=== PATIENT | male | born 1975 | race Caucasian/White ===

== ENCOUNTER → 2020-12-06 09:44 | Outpatient (CLI) | payer OTHER, SELFPAY ==
--- NOTE | 2020-12-06 09:45 | DI.RAD.S_ITS ---
PROCEDURE: XR LUMBAR SPINE 2-3V INDICATIONS: low back pain TECHNIQUE: 3 views of the lumbar spine were acquired. COMPARISON: None. FINDINGS: Bones: No fracture. Moderate to severe narrowing of the L5-S1 disc space. Multilevel degenerative endplate sclerosis and spurring. Diffuse facet arthropathy. Straightening of the normal lordotic curvature. Partially visualized bilateral mild hip joint degeneration. Soft tissues: Overlying bowel gas pattern is normal. No suspicious soft tissue calcifications. IMPRESSION: Moderate to severe L5-S1 spondylosis and diffuse facet arthropathy Dictated by: Darrin Chi M.D. on 12/06/2020 at 10:18 Approved by: Darrin Chi M.D. on 12/06/2020 at 10:22
== END ==
PROVIDERS: PCP Internal Medicine; Referring Provider Internal Medicine; Visit Provider Internal Medicine
DX: M54.5 Low back pain (principal); M47.817 Spondylosis without myelopathy or radiculopathy, lumbosacral region; M16.0 Bilateral primary osteoarthritis of hip
CPT/HCPCS: 72100

== ENCOUNTER → 2020-12-21 09:53 | Outpatient (CLI) | payer OTHER, SELFPAY ==
[2020-12-21 11:25] LABS: Alanine Aminotransferase 33 IU/L (<50); Albumin 4.6 g/dL (3.5-5.0); Albumin Globulin Ratio 1.6 (1.0-2.8); Alkaline Phosphatase 65 U/L (38-126); Aspartate Aminotransferase 32 IU/L (17-59); Bilirubin Total 0.4 mg/dL (0.2-1.3); Blood Urea Nitrogen 19 mg/dL (9-20); Calcium 9.6 mg/dL (8.4-10.2); Carbon Dioxide 28 mmol/L (22-32); Chloride 105 mmol/L (98-107); Cholesterol 209 mg/dL (140-199); Estimated Glomerular Filt Rate > 60.0 mL/min (>60); Globulin 2.9 g/dL (1.7-4.1); Glucose 104 mg/dL (70-100); HDL Cholesterol 42 mg/dL (40-60); HEMOLYSIS < 15 (0-50); LDL Cholesterol Calculated 130 mg/dL (<100); Potassium 4.3 mmol/L (3.4-5.1); Sodium 138 mmol/L (137-145); Total Protein 7.5 g/dL (6.3-8.2); Triglycerides 187 mg/dL (35-150)
[2020-12-26 19:47] LABS: Vitamin D 25 Hydroxy (D3) 49.2 ng/mL (30.0-100.0)
== END ==
PROVIDERS: PCP Internal Medicine; Referring Provider Internal Medicine; Visit Provider Internal Medicine
DX: Z13.1 Encounter for screening for diabetes mellitus (principal); Z13.220 Encounter for screening for lipoid disorders; Z13.6 Encounter for screening for cardiovascular disorders; M54.5 Low back pain
CPT/HCPCS: 36415; 80053; 80061; 82306

== ENCOUNTER → 2021-01-24 10:19 | Outpatient (CLI) | payer OTHER, SELFPAY ==
--- NOTE | 2021-01-24 10:27 | DIET.PN ---
Dietary Progress Note Assessment: 45y M attending nutrition visit for help c back pain and weight loss. Pt works for [employer] and goes to [employer] regularly however lives alone and when stressed out will order [employer] a few times per day and overeat. Pt reports hx of some disordered eating, waiting too long to eat then eating a day's worth of meals at one time. 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 HT: 6' WT: 230# Would like to lose 30# UBW: 220# (has gained weight during covid) BMI: 31.2 Labs: FBG 104 H, TG 187 H, TC 209 H, LDL 130 H, HDL 42 WNL Doesn't eat breakfast ever but feels he likely should add something midmorning. forgets to eat when at work wants 2 meals and one snack generally Usual Day: wakes 6am- usually sleeps well coffee Lunch: lox bagel c cream cheese Dinner: salmon for dinner c salad Likes to eat meat usually fish or steak (filet) loves vegetables, just has trouble meal planning and is in a rut. Nutrition Diagnosis: altered nutrition related laboratory values (FBG, TG, TC, LDL, BMI) r/t undesirable food choices and nutrition related knowledge deficit aeb FBG 104 H, TG 187 H, TC 209 H, LDL 130 H, BMI 31.2, pt reports being unsure how strict to be with his food plan to gain desired results. Interventions: 1. To address healthy relationship c food and regular eating pattern, educated pt on Hunger Scale as he has hx of some disordered eating and still has some restrictive/binge tendencies when stressed. Encouraged pt to flex his current eating habits to allow food intake when a 3 and stop when an 8, to notice when he eats at a 5. Pt resonates that his lack of eating during the day and getting too hungry causes him to overeat in [place] reducing effectiveness of current weight loss efforts. 2. To support weight loss efforts and better control of back pain, discussed balanced plate eating with focus on anti-inflammatory foods. Provided handouts on anti-inflammatory diet c B/L/D/S ideas. Reiterated to pt [employer] ordering will not be supportive of weight loss nor be anti-inflammatory. 3. Introduced pt to the idea of meal kit delivery service. Pt feels this will be a good idea for dinners several days per week. RD recc [employer] as they are healthy choices with organic proteins. EER: 45g CHO per meal max Monitoring/Evaluations: f/u in 2w
== END ==
PROVIDERS: PCP Internal Medicine; Referring Provider Internal Medicine; Visit Provider Internal Medicine
DX: M54.9 Dorsalgia, unspecified (principal); E66.9 Obesity, unspecified; Z68.31 Body mass index [BMI] 31.0-31.9, adult; Z71.3 Dietary counseling and surveillance
CPT/HCPCS: 97802

== ENCOUNTER 2021-03-18 13:00 | Outpatient (RCR) | payer BC, OTHER, SELFPAY ==
--- NOTE | 2020-12-18 16:06 | PT.OIE ---
Current Diagnoses Spondylosis without myelopathy or radiculopathy, site unspecified (12/18/20) Past Medical History (Last Reviewed 12/06/20 @ 09:59 by Dick Babin MD) No known health problems Visit Care Team Role Provider Type Dick Babin MD Attending Provider Physician Primary Care Provider Referring Provider Specialty: Internal Medicine Address: [address] [place] [address], [address], [address] Email: [email or web address] Physical Therapy Initial Evaluation PT-OP-A Visit Information Start: 12/18/20 10:43 Freq: Status: Active Protocol: Document 12/18/20 12:16 MB (Rec: 12/18/20 12:36 MB [id number]) Out-Patient Physical Therapy Visit Information Visit Information Visit Type Initial Evaluation Visit Note [place], $20 copay and 45 PT/OT /ST combined visits for the year Visit Start Time 12:16 Visit Stop Time 13:00 Total Visit Minutes 44 Visit Number 1 Evaluation Information Evaluation Date 12/18/20 PT-OP-B Current Condition Start: 12/18/20 10:43 Freq: Status: Active Protocol: Document 12/18/20 12:16 MB (Rec: 12/18/20 12:36 MB [id number]) Current Condition History of Current Condition Onset Date 4 months Current Complaints LBP worse in the morning History of Current Condition Pt reports moving from [place] 4 months ago. He did a lot of packing and carrying boxes up and downstairs. He drove from [place]. He was sleeping on a poor mattress or couch up until a few days ago. He just got a softer mattress. He is concernd about switching the mattresses. Pt reports 6/10 LBP worse in the morning and he feels stiff . He has no paresthesias or bowel or bladder issues. Pt brings in his x-ray report. He wants to keep active, hiking 15-20 miles a week. 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 He likes to do yoga. He is not doing extension positions with yoga. Pt sleeps on his side without pillow support between legs. Prior Treatments and Tests Lumbar x-ray 12/06/20: mod to severe L5-S1 spondylosis and diffuse facet arthropathy, multilevel degenerative endplate sclerosis and spurring, straightening of the normal lordotic curvature. Treatment Goals Patient/Caregiver Goals To decrease pain, increase strength and maintain activity level PT-OP-C Subjective Start: 12/18/20 10:43 Freq: Status: Active Protocol: Document 12/18/20 12:16 MB (Rec: 12/18/20 12:36 MB [id number]) OP-PT Subjective Patient Comments Patient Comments See history of current condition Patient Questionnaires Oswestry Low Back Index Oswestry Score Pt does not complete test PT-OP-J Posture/Palpation/Skin Start: 12/18/20 10:43 Freq: Status: Active Protocol: Document 12/18/20 12:16 MB (Rec: 12/18/20 16:06 MB [id number]) Posture Evaluation Comments Posture Comments Standing with socks and without shoes: Forward head, rounded shoulders, Dowager's hump, decreased thoracic kyphosis, anterior tilt pelvis , thoracic convexity L that transitions to right convexity , right iliac crest higher than the left. PT-OP-K Range of Motion Start: 12/18/20 10:43 Freq: Status: Active Protocol: Document 12/18/20 12:16 MB (Rec: 12/18/20 16:03 MB [id number]) Hip Goniometric Range of Motion Hip ROM Limitations Comments Passive SLR: right 25 deg and left 30 deg PT-OP-M Strength Start: 12/18/20 10:43 Freq: Status: Active Protocol: Document 12/18/20 12:16 MB (Rec: 12/18/20 16:03 MB [id number]) Hip Strength Hip Manual Muscle Testing Left Flexion (L2) 4 Good Abduction 5 Normal Right Flexion (L2) 5 Normal Abduction 4 Good Knee Strength Knee Manual Muscle Testing Left Flexion (S2) 5 Normal Extension (L3) 5 Normal Right Flexion (S2) 5 Normal Extension (L3) 5 Normal Ankle/Foot Strength Ankle and Foot Manual Muscle Testing Left Dorsiflexion (L4) 5 Normal Right Dorsiflexion (L4) 5 Normal Toe Strength Toe Manual Muscle Testing Left Great Toe Extension 5 Normal Right Great Toe Extension 5 Normal PT-OP-T Assessment and Plan Start: 12/18/20 10:43 Freq: Status: Active Protocol: Document 12/18/20 12:16 MB (Rec: 12/18/20 16:03 MB [id number]) Physical Therapy Assessment Rehab Potential Rehabilitation Potential Good Evaluation Complexity Number of Personal Factors/Comorbidities 0 Number of Body Systems Impaired 1-2 Clinical Presentation at Evaluation Evolving Impairments Impairments Pain,Posture,ROM,Soft Tissue Mobility,Strength Goals 3 Long-Term Goal (LTG) Pt will perform progressive HEP with I including pelvic realignment, flexibility, racquet ball STM and strengthening to decrease pain and improve ROM by 02/15/21. LTG Duration 8 weeks 2 Long-Term Goal (LTG) Pt will present with improved B passive SLR to at least 60 deg to reflect improved flexibility to allow for safe return to yoga by 02/15/21. LTG Duration 8 weeks 1 Long-Term Goal (LTG) Pt will report an overall 90% improvement in LBP to allow return to yoga and hiking and to reflect improved quality of life by 02/15/21. LTG Duration 8 weeks Assessment Summary Assessment Pt is a 45 y/o male presenting with LBP after move from [place] which required him to pack and move many boxes and drive far . He has been sleeping on poor mattress until the last few days and this has also exacerbated his a.m. symptoms. Symptoms are worse in the morning and with moving from standing to sitting and sitting to supine and back today. Lumbar x-ray reveals changes, greatest at L5-S1 area. Pt is very concerned about the findings and PT encourages him today about likely functional gains anticipated. Pt presents with limited SLR B, greater on the left, as well as LE weakness. Pt will benefit from PT for pelvic alignment, manual work, flexibility, strengthening and balance. Physical Therapy Plan Frequency and Duration Frequency of Treatment 2x/Week Duration of Treatment 8 weeks Plan of Care Start Date 12/18/20 Plan of Care End Date 02/15/21 Therapeutic Interventions Therapeutic Interventions Balance Training,Canalithic Repositioning,Home Exercise Program,Joint Mobilizations, Manual Therapy,Neuromuscular Re-education,Patient/Caregiver Education,Self-Care/Home Management,Sensory Integration ,Soft Tissue Mobilization, Taping,Therapeutic Activities, Therapeutic Exercises Modalities Cold Pack/Ice Massage,Electric Stimulation,Hot Packs, Ultrasound Next Visit Focus/Plan Next Note Type Treatment Note Next Visit Plan Pelvic realignment exercises and any of the following as appropriate: hamstring stretch , Rick stretch, sitting thoracic rotation, manual work , STM with lemuel concepcion
--- NOTE | 2020-12-18 16:06 | PT.OPPOC ---
Physical, Occupational & Speech Therapy At [facility] Current Diagnoses Spondylosis without myelopathy or radiculopathy, site unspecified (12/18/20) Visit Care Team Role Provider Type Dick Babin MD Attending Provider Physician Primary Care Provider Referring Provider Specialty: Internal Medicine Address: [address] [place] [address], [address], [address] Email: [email or web address] Plan Of Care PT-OP-T Assessment and Plan Start: 12/18/20 10:43 Freq: Status: Active Protocol: Document 12/18/20 12:16 MB (Rec: 12/18/20 16:03 MB [id number]) Physical Therapy Assessment Rehab Potential Rehabilitation Potential Good Evaluation Complexity Number of Personal Factors/Comorbidities 0 Number of Body Systems Impaired 1-2 Clinical Presentation at Evaluation Evolving Impairments Impairments Pain,Posture,ROM,Soft Tissue Mobility,Strength Goals 3 Custodial Goal (LTG) Pt will perform progressive HEP with I including pelvic realignment, flexibility, racquet ball STM and strengthening to decrease pain and improve ROM by 02/15/21. LTG Duration 8 weeks 2 Verify Rep Goal (LTG) Pt will present with improved B passive SLR to at least 60 deg to reflect improved flexibility to allow for safe return to yoga by 02/15/21. LTG Duration 8 weeks 1 Verify Rep Goal (LTG) Pt will report an overall 90% improvement in LBP to allow return to yoga and hiking and to reflect improved quality of life by 02/15/21. LTG Duration 8 weeks Assessment Summary Assessment Pt is a 45 y/o male presenting with LBP after move from [place] which required him to pack and move many boxes and drive far . He has been sleeping on poor mattress until the last few days and this has also exacerbated his a.m. symptoms. Symptoms are worse in the morning and with moving from standing to sitting and sitting to supine and back today. Lumbar x-ray reveals changes, greatest at L5-S1 area. Pt is very concerned about the findings and PT encourages him today about likely functional gains anticipated. Pt presents with limited SLR B, greater on the left, as well as LE weakness. Pt will benefit from PT for pelvic alignment, manual work, flexibility, strengthening and balance. Physical Therapy Plan Frequency and Duration Frequency of Treatment 2x/Week Duration of Treatment 8 weeks Plan of Care Start Date 12/18/20 Plan of Care End Date 02/15/21 Therapeutic Interventions Therapeutic Interventions Balance Training,Canalithic Repositioning,Home Exercise Program,Joint Mobilizations, Manual Therapy,Neuromuscular Re-education,Patient/Caregiver Education,Self-Care/Home Management,Sensory Integration ,Soft Tissue Mobilization, Taping,Therapeutic Activities, Therapeutic Exercises Modalities Cold Pack/Ice Massage,Electric Stimulation,Hot Packs, Ultrasound Next Visit Focus/Plan Next Note Type Treatment Note Next Visit Plan Pelvic realignment exercises and any of the following as appropriate: hamstring stretch , Rick stretch, sitting thoracic rotation, manual work , STM with racquet ball Plan of Care Dates Plan of Care Start Date 12/18/20 Plan of Care End Date 02/15/21 Electronically Signed by: Oralia Vann, PT 12/18/20 [id number] Please Sign and Return: I have reviewed this Plan of Care and certify that the skilled therapy services above are required to meet the patient?s needs. Physician Signature Date Printed Name and Credentials Clinical Instructor Signature Printed Name and Credentials
--- NOTE | 2020-12-21 09:51 | PT.OTN ---
Current Diagnoses Spondylosis without myelopathy or radiculopathy, site unspecified (12/21/20) Physical Therapy Treatment Note PT-OP-A Visit Information Start: 12/18/20 10:43 Freq: Status: Active Protocol: Document 12/21/20 09:00 DCW (Rec: 12/21/20 09:50 DCW [id number]) Out-Patient Physical Therapy Visit Information Visit Information Visit Type Treatment Note Visit Start Time 09:00 Visit Stop Time 09:45 Total Visit Minutes 45 Visit Number 2 Evaluation Information Evaluation Date 12/18/20 PT-OP-B Current Condition Start: 12/18/20 10:43 Freq: Status: Active Protocol: Document 12/18/20 12:16 MB (Rec: 12/18/20 12:36 MB [id number]) Current Condition History of Current Condition Onset Date 4 months Current Complaints LBP worse in the morning History of Current Condition Pt reports moving from [place] 4 months ago. He did a lot of packing and carrying boxes up and downstairs. He drove from [place]. He was sleeping on a poor mattress or couch up until a few days ago. He just got a softer mattress. He is concernd about switching the mattresses. Pt reports 6/10 LBP worse in the morning and he feels stiff . He has no paresthesias or bowel or bladder issues. Pt brings in his x-ray report. He wants to keep active, hiking 15-20 miles a week. 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 He likes to do yoga. He is not doing extension positions with yoga. Pt sleeps on his side without pillow support between legs. Prior Treatments and Tests Lumbar x-ray 12/06/20: mod to severe L5-S1 spondylosis and diffuse facet arthropathy, multilevel degenerative endplate sclerosis and spurring, straightening of the normal lordotic curvature. Treatment Goals Patient/Caregiver Goals To decrease pain, increase strength and maintain activity level PT-OP-C Subjective Start: 12/18/20 10:43 Freq: Status: Active Protocol: Document 12/21/20 09:00 DCW (Rec: 12/21/20 09:50 DCW [id number]) OP-PT Subjective Patient Comments Patient Comments Pt reports he was pretty sore upon waking this morning, but feels a little better now. Reports pain is mainly along his left low back. PT-OP-J Posture/Palpation/Skin Start: 12/18/20 10:43 Freq: Status: Active Protocol: Document 12/18/20 12:16 MB (Rec: 12/18/20 16:06 MB [id number]) Posture Evaluation Comments Posture Comments Standing with socks and without shoes: Forward head, rounded shoulders, Dowager's hump, decreased thoracic kyphosis, anterior tilt pelvis , thoracic convexity L that transitions to right convexity , right iliac crest higher than the left. PT-OP-K Range of Motion Start: 12/18/20 10:43 Freq: Status: Active Protocol: Document 12/18/20 12:16 MB (Rec: 12/18/20 16:03 MB [id number]) Hip Goniometric Range of Motion Hip ROM Limitations Comments Passive SLR: right 25 deg and left 30 deg PT-OP-M Strength Start: 12/18/20 10:43 Freq: Status: Active Protocol: Document 12/18/20 12:16 MB (Rec: 12/18/20 16:03 MB [id number]) Hip Strength Hip Manual Muscle Testing Left Flexion (L2) 4 Good Abduction 5 Normal Right Flexion (L2) 5 Normal Abduction 4 Good Knee Strength Knee Manual Muscle Testing Left Flexion (S2) 5 Normal Extension (L3) 5 Normal Right Flexion (S2) 5 Normal Extension (L3) 5 Normal Ankle/Foot Strength Ankle and Foot Manual Muscle Testing Left Dorsiflexion (L4) 5 Normal Right Dorsiflexion (L4) 5 Normal Toe Strength Toe Manual Muscle Testing Left Great Toe Extension 5 Normal Right Great Toe Extension 5 Normal PT-OP-Q Treatments Start: 12/18/20 10:43 Freq: Status: Active Protocol: Document 12/21/20 09:00 DCW (Rec: 12/21/20 09:50 DCW [id number]) Cardio Equipment Recumbent Elliptical ([place]) Duration (Minutes) 5 Resistance 5 Seat Position 12 Therapeutic Exercises Supine Exercises 6 Supine Exercise Name PPT /c TrA contraction Reps/Minutes 5 hold x10 5 Supine Exercise Name Hamstring stretch Side bilateral 4 Supine Exercise Name Rick stretch Side bilateral Reps/Minutes 30 hold 3 Supine Exercise Name One leg press/hold Side bilateral Reps/Minutes 3 hold x5 2 Supine Exercise Name One leg pelvic lift Side bilateral Reps/Minutes 3 hold x5 1 Supine Exercise Name Hooklying Ball squeeze Side bilateral Resistance ball between knees Reps/Minutes 3 hold x5 Sitting Exercises 1 Sitting Exercise Name Thoracic Rotation Stretch Side bilateral Reps/Minutes 20 hold Manual Therapy Treatment Soft Tissue Mobilization 1 Body Location B Quadratus lumborum Mobilization Type Strumming,Sustained Pressure Body Position Sidelying PT-OP-T Assessment and Plan Start: 12/18/20 10:43 Freq: Status: Active Protocol: Document 12/21/20 09:00 DCW (Rec: 12/21/20 09:50 DCW [id number]) Physical Therapy Assessment Impairments Impairments Pain,Posture,ROM,Soft Tissue Mobility,Strength Goals 3 Shelter Goal (LTG) Pt will perform progressive HEP with I including pelvic realignment, flexibility, racquet ball STM and strengthening to decrease pain and improve ROM by 02/15/21. LTG Duration 8 weeks 2 Shelter Goal (LTG) Pt will present with improved B passive SLR to at least 60 deg to reflect improved flexibility to allow for safe return to yoga by 02/15/21. LTG Duration 8 weeks 1 Shelter Goal (LTG) Pt will report an overall 90% improvement in LBP to allow return to yoga and hiking and to reflect improved quality of life by 02/15/21. LTG Duration 8 weeks Assessment Summary Assessment Pt tolerated treatment very well today, noted improvement with all exercises and following STM. Pt promised compliance with new HEP. Physical Therapy Plan Frequency and Duration Frequency of Treatment 2x/Week Duration of Treatment 8 weeks Plan of Care Start Date 12/18/20 Plan of Care End Date 02/15/21 Therapeutic Interventions Therapeutic Interventions Balance Training,Canalithic Repositioning,Home Exercise Program,Joint Mobilizations, Manual Therapy,Neuromuscular Re-education,Patient/Caregiver Education,Self-Care/Home Management,Sensory Integration ,Soft Tissue Mobilization, Taping,Therapeutic Activities, Therapeutic Exercises Modalities Cold Pack/Ice Massage,Electric Stimulation,Hot Packs, Ultrasound Next Visit Focus/Plan Next Note Type Treatment Note Next Visit Plan Assess response to pelvic realignment exercises, continue manual treatment, strengthening
--- NOTE | 2020-12-24 16:45 | PT.OTN ---
Current Diagnoses Spondylosis without myelopathy or radiculopathy, site unspecified (12/24/20) Physical Therapy Treatment Note PT-OP-A Visit Information Start: 12/18/20 10:43 Freq: Status: Active Protocol: Document 12/24/20 16:00 DCW (Rec: 12/24/20 16:44 DCW [id number]) Out-Patient Physical Therapy Visit Information Visit Information Visit Type Treatment Note Visit Start Time 16:00 Visit Stop Time 16:45 Total Visit Minutes 45 Visit Number 3 Number of [employer] AND ACQUISITIONS CONSULTANT Visits 0 Evaluation Information Evaluation Date 12/18/20 PT-OP-B Current Condition Start: 12/18/20 10:43 Freq: Status: Active Protocol: Document 12/18/20 12:16 MB (Rec: 12/18/20 12:36 MB [id number]) Current Condition History of Current Condition Onset Date 4 months Current Complaints LBP worse in the morning History of Current Condition Pt reports moving from [place] 4 months ago. He did a lot of packing and carrying boxes up and downstairs. He drove from [place]. He was sleeping on a poor mattress or couch up until a few days ago. He just got a softer mattress. He is concernd about switching the mattresses. Pt reports 6/10 LBP worse in the morning and he feels stiff . He has no paresthesias or bowel or bladder issues. Pt brings in his x-ray report. He wants to keep active, hiking 15-20 miles a week. 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 He likes to do yoga. He is not doing extension positions with yoga. Pt sleeps on his side without pillow support between legs. Prior Treatments and Tests Lumbar x-ray 12/06/20: mod to severe L5-S1 spondylosis and diffuse facet arthropathy, multilevel degenerative endplate sclerosis and spurring, straightening of the normal lordotic curvature. Treatment Goals Patient/Caregiver Goals To decrease pain, increase strength and maintain activity level PT-OP-C Subjective Start: 12/18/20 10:43 Freq: Status: Active Protocol: Document 12/24/20 16:00 DCW (Rec: 12/24/20 16:44 DCW [id number]) OP-PT Subjective Patient Comments Patient Comments Pt reports he felt good following his appointment Thursday, but it didn't change most of his complaints, still pretty sore if I don't get out and move around more. Admits he didn't follow his HEP well this past weekend. PT-OP-J Posture/Palpation/Skin Start: 12/18/20 10:43 Freq: Status: Active Protocol: Document 12/18/20 12:16 MB (Rec: 12/18/20 16:06 MB [id number]) Posture Evaluation Comments Posture Comments Standing with socks and without shoes: Forward head, rounded shoulders, Dowager's hump, decreased thoracic kyphosis, anterior tilt pelvis , thoracic convexity L that transitions to right convexity , right iliac crest higher than the left. PT-OP-K Range of Motion Start: 12/18/20 10:43 Freq: Status: Active Protocol: Document 12/18/20 12:16 MB (Rec: 12/18/20 16:03 MB [id number]) Hip Goniometric Range of Motion Hip ROM Limitations Comments Passive SLR: right 25 deg and left 30 deg PT-OP-M Strength Start: 12/18/20 10:43 Freq: Status: Active Protocol: Document 12/18/20 12:16 MB (Rec: 12/18/20 16:03 MB [id number]) Hip Strength Hip Manual Muscle Testing Left Flexion (L2) 4 Good Abduction 5 Normal Right Flexion (L2) 5 Normal Abduction 4 Good Knee Strength Knee Manual Muscle Testing Left Flexion (S2) 5 Normal Extension (L3) 5 Normal Right Flexion (S2) 5 Normal Extension (L3) 5 Normal Ankle/Foot Strength Ankle and Foot Manual Muscle Testing Left Dorsiflexion (L4) 5 Normal Right Dorsiflexion (L4) 5 Normal Toe Strength Toe Manual Muscle Testing Left Great Toe Extension 5 Normal Right Great Toe Extension 5 Normal PT-OP-Q Treatments Start: 12/18/20 10:43 Freq: Status: Active Protocol: Document 12/24/20 16:00 DCW (Rec: 12/24/20 16:44 DCW [id number]) Cardio Equipment Recumbent Elliptical ([employer]) Duration (Minutes) 5 Resistance 5 Seat Position 12 Gym Equipment Therapeutic Ball 1 Exercise Details Low trunk rotation Ball Size/Color Red - 55 cm Body Position Supine Therapeutic Exercises Supine Exercises 7 Supine Exercise Name PPT /c TrA - Marching Reps/Minutes 5 hold Comments stopped secondary to back pain 6 Supine Exercise Name PPT /c TrA contraction Reps/Minutes 5 hold x10 5 Supine Exercise Name Hamstring stretch Side bilateral Comments 15 hold x3 4 Supine Exercise Name Rick stretch Side bilateral Reps/Minutes 30 hold 3 Supine Exercise Name One leg press/hold Side bilateral Reps/Minutes 3 hold x5 2 Supine Exercise Name One leg pelvic lift Side bilateral Reps/Minutes 3 hold x5 1 Supine Exercise Name Hooklying Ball squeeze Side bilateral Resistance ball between knees Reps/Minutes 3 hold x5 Manual Therapy Treatment Soft Tissue Mobilization 1 Body Location B Quadratus lumborum Mobilization Type Strumming,Sustained Pressure Body Position Sidelying PT-OP-T Assessment and Plan Start: 12/18/20 10:43 Freq: Status: Active Protocol: Document 12/24/20 16:00 DCW (Rec: 12/24/20 16:44 DCW [id number]) Physical Therapy Assessment Impairments Impairments Pain,Posture,ROM,Soft Tissue Mobility,Strength Goals 3 Jail Goal (LTG) Pt will perform progressive HEP with I including pelvic realignment, flexibility, racquet ball STM and strengthening to decrease pain and improve ROM by 02/15/21. LTG Duration 8 weeks 2 Content Administrator Goal (LTG) Pt will present with improved B passive SLR to at least 60 deg to reflect improved flexibility to allow for safe return to yoga by 02/15/21. LTG Duration 8 weeks 1 Content Administrator Goal (LTG) Pt will report an overall 90% improvement in LBP to allow return to yoga and hiking and to reflect improved quality of life by 02/15/21. LTG Duration 8 weeks Assessment Summary Assessment Pt experienced some increased pain today with bed mobility, although it lessened some with verbal cues for core contraction during movement. Pt assured therapist he would do better following his HEP. Physical Therapy Plan Frequency and Duration Frequency of Treatment 2x/Week Duration of Treatment 8 weeks Plan of Care Start Date 12/18/20 Plan of Care End Date 02/15/21 Therapeutic Interventions Therapeutic Interventions Balance Training,Canalithic Repositioning,Home Exercise Program,Joint Mobilizations, Manual Therapy,Neuromuscular Re-education,Patient/Caregiver Education,Self-Care/Home Management,Sensory Integration ,Soft Tissue Mobilization, Taping,Therapeutic Activities, Therapeutic Exercises Modalities Cold Pack/Ice Massage,Electric Stimulation,Hot Packs, Ultrasound Next Visit Focus/Plan Next Note Type Treatment Note Next Visit Plan Assess response to pelvic realignment exercises, continue manual treatment, strengthening
--- NOTE | 2021-01-04 11:19 | PT.OTN ---
Current Diagnoses Spondylosis without myelopathy or radiculopathy, site unspecified (01/04/21) Physical Therapy Treatment Note PT-OP-A Visit Information Start: 12/18/20 10:43 Freq: Status: Active Protocol: Document 01/04/21 10:36 SP (Rec: 01/04/21 16:59 SP [id number]) Out-Patient Physical Therapy Visit Information Visit Information Visit Type Treatment Note Visit Start Time 10:36 Visit Stop Time 11:19 Total Visit Minutes 43 Visit Number 4 Number of NATIONAL INSURANCE OFFICER Visits 1 PT-OP-B Current Condition Start: 12/18/20 10:43 Freq: Status: Active Protocol: Document 12/18/20 12:16 MB (Rec: 12/18/20 12:36 MB [id number]) Current Condition History of Current Condition Onset Date 4 months Current Complaints LBP worse in the morning History of Current Condition Pt reports moving from [place] 4 months ago. He did a lot of packing and carrying boxes up and downstairs. He drove from [place]. He was sleeping on a poor mattress or couch up until a few days ago. He just got a softer mattress. He is concernd about switching the mattresses. Pt reports 6/10 LBP worse in the morning and he feels stiff . He has no paresthesias or bowel or bladder issues. Pt brings in his x-ray report. He wants to keep active, hiking 15-20 miles a week. 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 He likes to do yoga. He is not doing extension positions with yoga. Pt sleeps on his side without pillow support between legs. Prior Treatments and Tests Lumbar x-ray 12/06/20: mod to severe L5-S1 spondylosis and diffuse facet arthropathy, multilevel degenerative endplate sclerosis and spurring, straightening of the normal lordotic curvature. Treatment Goals Patient/Caregiver Goals To decrease pain, increase strength and maintain activity level PT-OP-C Subjective Start: 12/18/20 10:43 Freq: Status: Active Protocol: Document 01/04/21 10:36 SP (Rec: 01/04/21 16:59 SP [id number]) OP-PT Subjective Patient Comments Patient Comments My pain comes and goes. I am appreciating the stretching HEP but want to get to doing more strengthening to support the walks doing and lifting objects. Pt stated is walking about 20 min and wants to get to hiking. Patient Reported Progress Improving PT-OP-J Posture/Palpation/Skin Start: 12/18/20 10:43 Freq: Status: Active Protocol: Document 12/18/20 12:16 MB (Rec: 12/18/20 16:06 MB [id number]) Posture Evaluation Comments Posture Comments Standing with socks and without shoes: Forward head, rounded shoulders, Dowager's hump, decreased thoracic kyphosis, anterior tilt pelvis , thoracic convexity L that transitions to right convexity , right iliac crest higher than the left. PT-OP-K Range of Motion Start: 12/18/20 10:43 Freq: Status: Active Protocol: Document 12/18/20 12:16 MB (Rec: 12/18/20 16:03 MB [id number]) Hip Goniometric Range of Motion Hip ROM Limitations Comments Passive SLR: right 25 deg and left 30 deg PT-OP-M Strength Start: 12/18/20 10:43 Freq: Status: Active Protocol: Document 12/18/20 12:16 MB (Rec: 12/18/20 16:03 MB [id number]) Hip Strength Hip Manual Muscle Testing Left Flexion (L2) 4 Good Abduction 5 Normal Right Flexion (L2) 5 Normal Abduction 4 Good Knee Strength Knee Manual Muscle Testing Left Flexion (S2) 5 Normal Extension (L3) 5 Normal Right Flexion (S2) 5 Normal Extension (L3) 5 Normal Ankle/Foot Strength Ankle and Foot Manual Muscle Testing Left Dorsiflexion (L4) 5 Normal Right Dorsiflexion (L4) 5 Normal Toe Strength Toe Manual Muscle Testing Left Great Toe Extension 5 Normal Right Great Toe Extension 5 Normal PT-OP-Q Treatments Start: 12/18/20 10:43 Freq: Status: Active Protocol: Document 01/04/21 10:36 SP (Rec: 01/04/21 16:59 SP [id number]) Cardio Equipment Recumbent Elliptical ([employer]) Duration (Minutes) 5 Resistance 5 Seat Position 12 Therapeutic Exercises Supine Exercises 4 Supine Exercise Name Rick stretch Side bilateral Reps/Minutes 30 hold 3 Supine Exercise Name One leg press/hold Side bilateral Reps/Minutes 3 hold x5 Comments cued not to press to hard, just meet grasp and allow back to release little 2 Supine Exercise Name One leg pelvic lift Side bilateral Reps/Minutes 3 hold x5 Comments cued not to press to hard, just meet grasp and allow back to release little 1 Supine Exercise Name Hooklying Ball squeeze Side bilateral Resistance ball between knees Reps/Minutes 3 hold x5 Comments cued not to press to hard, just meet grasp and allow back to release little Standing Exercises 3 Standing Exercise Name band walk f/b/side stepping Resistance Tb #2 Reps/Minutes 20 ft Comments cued level pelvis, elevated posture, glut fac, no drag trail LE 2 Standing Exercise Name resisted shld ext Side bilateral Resistance TB #2> #3 Reps/Minutes 2x10 Comments cued upright posture, PPT awareness and scap stab eccentric control 1 Standing Exercise Name resisted rows Side bilateral Resistance TB #2>#3>#4 Reps/Minutes x10 Comments cued upright posture, PPT awareness and scap stab eccentric control PT-OP-T Assessment and Plan Start: 12/18/20 10:43 Freq: Status: Active Protocol: Document 01/04/21 10:36 SP (Rec: 01/04/21 16:59 SP [id number]) Physical Therapy Assessment Goals 3 Retirement Goal (LTG) Pt will perform progressive HEP with I including pelvic realignment, flexibility, racquet ball STM and strengthening to decrease pain and improve ROM by 02/15/21. 01/04/21: pelvic relignment ex, resisted rows, shld ext, band walk, TA march, TA engagement, HS/Rick stretching. LTG Duration 8 weeks 2 Element Winding Machine Tender Goal (LTG) Pt will present with improved B passive SLR to at least 60 deg to reflect improved flexibility to allow for safe return to yoga by 02/15/21. LTG Duration 8 weeks 1 Element Winding Machine Tender Goal (LTG) Pt will report an overall 90% improvement in LBP to allow return to yoga and hiking and to reflect improved quality of life by 02/15/21. LTG Duration 8 weeks Assessment Summary Assessment Pt tolerated ther ex well. Reviewed pelvic realignment exercises with cuing for not over activating isometric, stretching. Initiated core/hip abd strengthening per pt request increase strengthening to help support walks taking now and prep for hiking uneven surfaces. See HEP goal- good LS stabilzation response and self corrections form. Physical Therapy Plan Frequency and Duration Frequency of Treatment 2x/Week Duration of Treatment 8 weeks Plan of Care Start Date 12/18/20 Plan of Care End Date 02/15/21 Therapeutic Interventions Therapeutic Interventions Balance Training,Canalithic Repositioning,Home Exercise Program,Joint Mobilizations, Manual Therapy,Neuromuscular Re-education,Patient/Caregiver Education,Self-Care/Home Management,Sensory Integration ,Soft Tissue Mobilization, Taping,Therapeutic Activities, Therapeutic Exercises Modalities Cold Pack/Ice Massage,Electric Stimulation,Hot Packs, Ultrasound Next Visit Focus/Plan Next Note Type Treatment Note Next Visit Plan Assess response to pelvic realignment exercises, stretching, core strengthening . Next tx review trunk rotation sitting on ball given by another PT and how can apply at home, chop with TB and side step resistance at core TB in standing.Pt stated does planks on own, check form. Manual if needed end tx with stretching.
--- NOTE | 2021-01-07 11:19 | PT.OTN ---
Current Diagnoses Spondylosis without myelopathy or radiculopathy, site unspecified (01/07/21) Physical Therapy Treatment Note PT-OP-A Visit Information Start: 12/18/20 10:43 Freq: Status: Active Protocol: Document 01/07/21 10:31 MB (Rec: 01/07/21 11:19 MB [id number]) Out-Patient Physical Therapy Visit Information Visit Information Visit Type Treatment Note Visit Start Time 10:31 Visit Stop Time 11:15 Total Visit Minutes 44 Visit Number 5 Number of HOUSEHOLD APPLIANCE INSTALLER Visits 0 PT-OP-B Current Condition Start: 12/18/20 10:43 Freq: Status: Active Protocol: Document 12/18/20 12:16 MB (Rec: 12/18/20 12:36 MB [id number]) Current Condition History of Current Condition Onset Date 4 months Current Complaints LBP worse in the morning History of Current Condition Pt reports moving from [place] 4 months ago. He did a lot of packing and carrying boxes up and downstairs. He drove from [place]. He was sleeping on a poor mattress or couch up until a few days ago. He just got a softer mattress. He is concernd about switching the mattresses. Pt reports 6/10 LBP worse in the morning and he feels stiff . He has no paresthesias or bowel or bladder issues. Pt brings in his x-ray report. He wants to keep active, hiking 15-20 miles a week. 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 He likes to do yoga. He is not doing extension positions with yoga. Pt sleeps on his side without pillow support between legs. Prior Treatments and Tests Lumbar x-ray 12/06/20: mod to severe L5-S1 spondylosis and diffuse facet arthropathy, multilevel degenerative endplate sclerosis and spurring, straightening of the normal lordotic curvature. Treatment Goals Patient/Caregiver Goals To decrease pain, increase strength and maintain activity level PT-OP-C Subjective Start: 12/18/20 10:43 Freq: Status: Active Protocol: Document 01/07/21 10:31 MB (Rec: 01/07/21 11:19 MB [id number]) OP-PT Subjective Patient Comments Patient Comments Not so good. I get a lot of pain in bed. Pt states that he is sleeping on the couch and has pain with rolling in bed. PT-OP-J Posture/Palpation/Skin Start: 12/18/20 10:43 Freq: Status: Active Protocol: Document 12/18/20 12:16 MB (Rec: 12/18/20 16:06 MB [id number]) Posture Evaluation Comments Posture Comments Standing with socks and without shoes: Forward head, rounded shoulders, Dowager's hump, decreased thoracic kyphosis, anterior tilt pelvis , thoracic convexity L that transitions to right convexity , right iliac crest higher than the left. PT-OP-K Range of Motion Start: 12/18/20 10:43 Freq: Status: Active Protocol: Document 12/18/20 12:16 MB (Rec: 12/18/20 16:03 MB [id number]) Hip Goniometric Range of Motion Hip ROM Limitations Comments Passive SLR: right 25 deg and left 30 deg PT-OP-M Strength Start: 12/18/20 10:43 Freq: Status: Active Protocol: Document 12/18/20 12:16 MB (Rec: 12/18/20 16:03 MB [id number]) Hip Strength Hip Manual Muscle Testing Left Flexion (L2) 4 Good Abduction 5 Normal Right Flexion (L2) 5 Normal Abduction 4 Good Knee Strength Knee Manual Muscle Testing Left Flexion (S2) 5 Normal Extension (L3) 5 Normal Right Flexion (S2) 5 Normal Extension (L3) 5 Normal Ankle/Foot Strength Ankle and Foot Manual Muscle Testing Left Dorsiflexion (L4) 5 Normal Right Dorsiflexion (L4) 5 Normal Toe Strength Toe Manual Muscle Testing Left Great Toe Extension 5 Normal Right Great Toe Extension 5 Normal PT-OP-Q Treatments Start: 12/18/20 10:43 Freq: Status: Active Protocol: Document 01/07/21 10:31 MB (Rec: 01/07/21 11:19 MB [id number]) Manual Therapy Treatment Other Other Manual Treatments Pt kneeling over wedge and lying over mat: STM B thoracolumbar paraspinals, left greater than right QL, sacrotuberous ligaments and hip rotators. See assessment comments below. PT-OP-T Assessment and Plan Start: 12/18/20 10:43 Freq: Status: Active Protocol: Document 01/07/21 10:31 MB (Rec: 01/07/21 11:19 MB [id number]) Physical Therapy Assessment Goals 3 Fdc Goal (LTG) Pt will perform progressive HEP with I including pelvic realignment, flexibility, racquet ball STM and strengthening to decrease pain and improve ROM by 02/15/21. 01/04/21: pelvic relignment ex, resisted rows, shld ext, band walk, TA march, TA engagement, HS/Rick stretching. LTG Duration 8 weeks 2 Computer Aided Drafter Goal (LTG) Pt will present with improved B passive SLR to at least 60 deg to reflect improved flexibility to allow for safe return to yoga by 02/15/21. LTG Duration 8 weeks 1 Fdc Goal (LTG) Pt will report an overall 90% improvement in LBP to allow return to yoga and hiking and to reflect improved quality of life by 02/15/21. LTG Duration 8 weeks Assessment Summary Assessment Pt presents with some anxiety about having seen several providers and having to pay his copay on the way in d/t budgeting issues. PT provides encouragement and pt satisfaction survey. Pt presents with increased edema and swelling over left QL area and will con't to monitor. Recommend ongoing manual work. Physical Therapy Plan Frequency and Duration Frequency of Treatment 2x/Week Duration of Treatment 8 weeks Plan of Care Start Date 12/18/20 Plan of Care End Date 02/15/21 Therapeutic Interventions Therapeutic Interventions Balance Training,Canalithic Repositioning,Home Exercise Program,Joint Mobilizations, Manual Therapy,Neuromuscular Re-education,Patient/Caregiver Education,Self-Care/Home Management,Sensory Integration ,Soft Tissue Mobilization, Taping,Therapeutic Activities, Therapeutic Exercises Modalities Cold Pack/Ice Massage,Electric Stimulation,Hot Packs, Ultrasound Next Visit Focus/Plan Next Note Type Treatment Note Next Visit Plan Reassess exercises and do not progress HEP currently unless flexibility or self-massage
--- NOTE | 2021-01-09 13:45 | PT.OTN ---
Current Diagnoses Spondylosis without myelopathy or radiculopathy, site unspecified (01/09/21) Physical Therapy Treatment Note PT-OP-A Visit Information Start: 12/18/20 10:43 Freq: Status: Active Protocol: Document 01/09/21 13:01 MB (Rec: 01/09/21 13:28 MB [id number]) Out-Patient Physical Therapy Visit Information Visit Information Visit Type Treatment Note Visit Start Time 13:01 Visit Stop Time 13:45 Total Visit Minutes 44 Visit Number 6 PT-OP-B Current Condition Start: 12/18/20 10:43 Freq: Status: Active Protocol: Document 12/18/20 12:16 MB (Rec: 12/18/20 12:36 MB [id number]) Current Condition History of Current Condition Onset Date 4 months Current Complaints LBP worse in the morning History of Current Condition Pt reports moving from [place] 4 months ago. He did a lot of packing and carrying boxes up and downstairs. He drove from [place]. He was sleeping on a poor mattress or couch up until a few days ago. He just got a softer mattress. He is concernd about switching the mattresses. Pt reports 6/10 LBP worse in the morning and he feels stiff . He has no paresthesias or bowel or bladder issues. Pt brings in his x-ray report. He wants to keep active, hiking 15-20 miles a week. 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 He likes to do yoga. He is not doing extension positions with yoga. Pt sleeps on his side without pillow support between legs. Prior Treatments and Tests Lumbar x-ray 12/06/20: mod to severe L5-S1 spondylosis and diffuse facet arthropathy, multilevel degenerative endplate sclerosis and spurring, straightening of the normal lordotic curvature. Treatment Goals Patient/Caregiver Goals To decrease pain, increase strength and maintain activity level PT-OP-C Subjective Start: 12/18/20 10:43 Freq: Status: Active Protocol: Document 01/09/21 13:01 MB (Rec: 01/09/21 13:28 MB [id number]) OP-PT Subjective Patient Comments Patient Comments I felt really good after last treatment and I'd like to con 't in that direction. PT-OP-J Posture/Palpation/Skin Start: 12/18/20 10:43 Freq: Status: Active Protocol: Document 12/18/20 12:16 MB (Rec: 12/18/20 16:06 MB [id number]) Posture Evaluation Comments Posture Comments Standing with socks and without shoes: Forward head, rounded shoulders, Dowager's hump, decreased thoracic kyphosis, anterior tilt pelvis , thoracic convexity L that transitions to right convexity , right iliac crest higher than the left. PT-OP-K Range of Motion Start: 12/18/20 10:43 Freq: Status: Active Protocol: Document 12/18/20 12:16 MB (Rec: 12/18/20 16:03 MB [id number]) Hip Goniometric Range of Motion Hip ROM Limitations Comments Passive SLR: right 25 deg and left 30 deg PT-OP-M Strength Start: 12/18/20 10:43 Freq: Status: Active Protocol: Document 12/18/20 12:16 MB (Rec: 12/18/20 16:03 MB [id number]) Hip Strength Hip Manual Muscle Testing Left Flexion (L2) 4 Good Abduction 5 Normal Right Flexion (L2) 5 Normal Abduction 4 Good Knee Strength Knee Manual Muscle Testing Left Flexion (S2) 5 Normal Extension (L3) 5 Normal Right Flexion (S2) 5 Normal Extension (L3) 5 Normal Ankle/Foot Strength Ankle and Foot Manual Muscle Testing Left Dorsiflexion (L4) 5 Normal Right Dorsiflexion (L4) 5 Normal Toe Strength Toe Manual Muscle Testing Left Great Toe Extension 5 Normal Right Great Toe Extension 5 Normal PT-OP-Q Treatments Start: 12/18/20 10:43 Freq: Status: Active Protocol: Document 01/09/21 13:01 MB (Rec: 01/09/21 13:28 MB [id number]) Therapeutic Exercises Supine Exercises Pelvic realignment exercises Side bilateral Comments 5 rep, 3 sec hold each exercise, cues for proper form today 4 Supine Exercise Name Rick stretch Side bilateral Comments 30 sec hold, pelvic tilt and abdominal drawing in Sitting Exercises Hamstring stretch Side bilateral Comments 30 sec hold, toes up Thoracic rotation Side bilateral Comments 2 reps, 5 sec hold and deep breath end-range QL Side bilateral Comments Arm overhead and opposite side gentle lean/reach, 30 sec hold Manual Therapy Treatment Other Other Manual Treatments B sidelying: rib recoil for QL and intercostal mobility, STM QL, paraspinals and TFL PT-OP-T Assessment and Plan Start: 12/18/20 10:43 Freq: Status: Active Protocol: Document 01/09/21 13:01 MB (Rec: 01/09/21 13:28 MB [id number]) Physical Therapy Assessment Goals 3 Small Engine Technician Goal (LTG) Pt will perform progressive HEP with I including pelvic realignment, flexibility, racquet ball STM and strengthening to decrease pain and improve ROM by 02/15/21. 01/04/21: pelvic relignment ex, resisted rows, shld ext, band walk, TA march, TA engagement, HS/Rick stretching. LTG Duration 8 weeks 2 Fpc Goal (LTG) Pt will present with improved B passive SLR to at least 60 deg to reflect improved flexibility to allow for safe return to yoga by 02/15/21. LTG Duration 8 weeks 1 Fpc Goal (LTG) Pt will report an overall 90% improvement in LBP to allow return to yoga and hiking and to reflect improved quality of life by 02/15/21. LTG Duration 8 weeks Assessment Summary Assessment Progressed flexibility exercises today and reviewed his other exercises and address positioning errors. Pt to stop strengthening exercises at this time. He will try yoga on Thursday with teacher online and will take it easy. Physical Therapy Plan Frequency and Duration Frequency of Treatment 2x/Week Duration of Treatment 8 weeks Plan of Care Start Date 12/18/20 Plan of Care End Date 02/15/21 Therapeutic Interventions Therapeutic Interventions Balance Training,Canalithic Repositioning,Home Exercise Program,Joint Mobilizations, Manual Therapy,Neuromuscular Re-education,Patient/Caregiver Education,Self-Care/Home Management,Sensory Integration ,Soft Tissue Mobilization, Taping,Therapeutic Activities, Therapeutic Exercises Modalities Cold Pack/Ice Massage,Electric Stimulation,Hot Packs, Ultrasound Next Visit Focus/Plan Next Note Type Treatment Note Next Visit Plan Racquet ball massage. Progress breathing exercises, diaphragm breathing, core education, flexibility, manual work, con't to assess hip flexor and QL
--- NOTE | 2021-01-17 09:00 | PT.OTN ---
Current Diagnoses Spondylosis without myelopathy or radiculopathy, site unspecified (01/17/21) Physical Therapy Treatment Note PT-OP-A Visit Information Start: 12/18/20 10:43 Freq: Status: Active Protocol: Document 01/17/21 08:16 MB (Rec: 01/17/21 08:34 MB [id number]) Out-Patient Physical Therapy Visit Information Visit Information Visit Type Treatment Note Visit Start Time 08:16 Visit Stop Time 09:00 Total Visit Minutes 44 Visit Number 7 PT-OP-B Current Condition Start: 12/18/20 10:43 Freq: Status: Active Protocol: Document 12/18/20 12:16 MB (Rec: 12/18/20 12:36 MB [id number]) Current Condition History of Current Condition Onset Date 4 months Current Complaints LBP worse in the morning History of Current Condition Pt reports moving from [place] 4 months ago. He did a lot of packing and carrying boxes up and downstairs. He drove from [place]. He was sleeping on a poor mattress or couch up until a few days ago. He just got a softer mattress. He is concernd about switching the mattresses. Pt reports 6/10 LBP worse in the morning and he feels stiff . He has no paresthesias or bowel or bladder issues. Pt brings in his x-ray report. He wants to keep active, hiking 15-20 miles a week. 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 He likes to do yoga. He is not doing extension positions with yoga. Pt sleeps on his side without pillow support between legs. Prior Treatments and Tests Lumbar x-ray 12/06/20: mod to severe L5-S1 spondylosis and diffuse facet arthropathy, multilevel degenerative endplate sclerosis and spurring, straightening of the normal lordotic curvature. Treatment Goals Patient/Caregiver Goals To decrease pain, increase strength and maintain activity level PT-OP-C Subjective Start: 12/18/20 10:43 Freq: Status: Active Protocol: Document 01/17/21 08:16 MB (Rec: 01/17/21 08:34 MB [id number]) OP-PT Subjective Patient Comments Patient Comments It's working. Pt states that he is feeling better. He is sleeping in his bed now and is off his back PT-OP-J Posture/Palpation/Skin Start: 12/18/20 10:43 Freq: Status: Active Protocol: Document 12/18/20 12:16 MB (Rec: 12/18/20 16:06 MB [id number]) Posture Evaluation Comments Posture Comments Standing with socks and without shoes: Forward head, rounded shoulders, Dowager's hump, decreased thoracic kyphosis, anterior tilt pelvis , thoracic convexity L that transitions to right convexity , right iliac crest higher than the left. PT-OP-K Range of Motion Start: 12/18/20 10:43 Freq: Status: Active Protocol: Document 12/18/20 12:16 MB (Rec: 12/18/20 16:03 MB [id number]) Hip Goniometric Range of Motion Hip ROM Limitations Comments Passive SLR: right 25 deg and left 30 deg PT-OP-M Strength Start: 12/18/20 10:43 Freq: Status: Active Protocol: Document 12/18/20 12:16 MB (Rec: 12/18/20 16:03 MB [id number]) Hip Strength Hip Manual Muscle Testing Left Flexion (L2) 4 Good Abduction 5 Normal Right Flexion (L2) 5 Normal Abduction 4 Good Knee Strength Knee Manual Muscle Testing Left Flexion (S2) 5 Normal Extension (L3) 5 Normal Right Flexion (S2) 5 Normal Extension (L3) 5 Normal Ankle/Foot Strength Ankle and Foot Manual Muscle Testing Left Dorsiflexion (L4) 5 Normal Right Dorsiflexion (L4) 5 Normal Toe Strength Toe Manual Muscle Testing Left Great Toe Extension 5 Normal Right Great Toe Extension 5 Normal PT-OP-Q Treatments Start: 12/18/20 10:43 Freq: Status: Active Protocol: Document 01/17/21 08:16 MB (Rec: 01/17/21 08:34 MB [id number]) Therapeutic Exercises Supine Exercises Pelvic realignment exercises Side bilateral Comments 5 rep, 3 sec hold each exercise, cues for proper form today 5 Side bilateral Comments 30 sec hold and ed pt that he can bend and straighten his leg 4 Supine Exercise Name Rick stretch Side bilateral Comments 30 sec hold, pelvic tilt and abdominal drawing in Sitting Exercises Hamstring stretch Side bilateral Comments 30 sec hold, toes up Manual Therapy Treatment Other Other Manual Treatments Pt kneeling over wedge and lying over mat: STM B thoracolumbar paraspinals, left greater than right QL, sacrotuberous ligaments and hip rotators. See assessment comments below. PT-OP-T Assessment and Plan Start: 12/18/20 10:43 Freq: Status: Active Protocol: Document 01/17/21 08:16 MB (Rec: 01/17/21 08:34 MB [id number]) Physical Therapy Assessment Goals 3 Longterm Goal (LTG) Pt will perform progressive HEP with I including pelvic realignment, flexibility, racquet ball STM and strengthening to decrease pain and improve ROM by 02/15/21. 01/04/21: pelvic relignment ex, resisted rows, shld ext, band walk, TA december, TA , HS/Rick stretching. LTG Duration 8 weeks 2 Longterm Goal (LTG) Pt will present with improved B passive SLR to at least 60 deg to reflect improved flexibility to allow for safe return to yoga by 02/15/21. LTG Duration 8 weeks 1 Transmission Maintenance Supervisor Goal (LTG) Pt will report an overall 90% improvement in LBP to allow return to yoga and hiking and to reflect improved quality of life by 02/15/21. LTG Duration 8 weeks Assessment Summary Assessment Pt is progressing and states that he is feeling better. Reviewed exercises today and con't manual work. Physical Therapy Plan Frequency and Duration Frequency of Treatment 2x/Week Duration of Treatment 8 weeks Plan of Care Start Date 12/18/20 Plan of Care End Date 02/15/21 Therapeutic Interventions Therapeutic Interventions Balance Training,Canalithic Repositioning,Home Exercise Program,Joint Mobilizations, Manual Therapy,Neuromuscular Re-education,Patient/Caregiver Education,Self-Care/Home Management,Sensory Integration ,Soft Tissue Mobilization, Taping,Therapeutic Activities, Therapeutic Exercises Modalities Cold Pack/Ice Massage,Electric Stimulation,Hot Packs, Ultrasound Next Visit Focus/Plan Next Note Type Treatment Note Next Visit Plan Consider STM hip flexor. Racquet ball massage. Progress breathing exercises, diaphragm breathing, core education, flexibility, manual work, con't to assess hip flexor and QL
--- NOTE | 2021-01-24 09:00 | PT.OTN ---
Current Diagnoses Spondylosis without myelopathy or radiculopathy, site unspecified (01/24/21) Physical Therapy Treatment Note PT-OP-A Visit Information Start: 12/18/20 10:43 Freq: Status: Active Protocol: Document 01/24/21 08:16 MB (Rec: 01/24/21 08:55 MB [id number]) Out-Patient Physical Therapy Visit Information Visit Information Visit Type Treatment Note Visit Start Time 08:16 Visit Stop Time 09:00 Total Visit Minutes 44 Visit Number 8 PT-OP-B Current Condition Start: 12/18/20 10:43 Freq: Status: Active Protocol: Document 12/18/20 12:16 MB (Rec: 12/18/20 12:36 MB [id number]) Current Condition History of Current Condition Onset Date 4 months Current Complaints LBP worse in the morning History of Current Condition Pt reports moving from [place] 4 months ago. He did a lot of packing and carrying boxes up and downstairs. He drove from [place]. He was sleeping on a poor mattress or couch up until a few days ago. He just got a softer mattress. He is concernd about switching the mattresses. Pt reports 6/10 LBP worse in the morning and he feels stiff . He has no paresthesias or bowel or bladder issues. Pt brings in his x-ray report. He wants to keep active, hiking 15-20 miles a week. 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 He likes to do yoga. He is not doing extension positions with yoga. Pt sleeps on his side without pillow support between legs. Prior Treatments and Tests Lumbar x-ray 12/06/20: mod to severe L5-S1 spondylosis and diffuse facet arthropathy, multilevel degenerative endplate sclerosis and spurring, straightening of the normal lordotic curvature. Treatment Goals Patient/Caregiver Goals To decrease pain, increase strength and maintain activity level PT-OP-C Subjective Start: 12/18/20 10:43 Freq: Status: Active Protocol: Document 01/24/21 08:16 MB (Rec: 01/24/21 08:55 MB [id number]) OP-PT Subjective Patient Comments Patient Comments Okay when PT asks pt how yoga went. 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 PT-OP-J Posture/Palpation/Skin Start: 12/18/20 10:43 Freq: Status: Active Protocol: Document 12/18/20 12:16 MB (Rec: 12/18/20 16:06 MB [id number]) Posture Evaluation Comments Posture Comments Standing with socks and without shoes: Forward head, rounded shoulders, Dowager's hump, decreased thoracic kyphosis, anterior tilt pelvis , thoracic convexity L that transitions to right convexity , right iliac crest higher than the left. PT-OP-K Range of Motion Start: 12/18/20 10:43 Freq: Status: Active Protocol: Document 12/18/20 12:16 MB (Rec: 12/18/20 16:03 MB [id number]) Hip Goniometric Range of Motion Hip ROM Limitations Comments Passive SLR: right 25 deg and left 30 deg PT-OP-M Strength Start: 12/18/20 10:43 Freq: Status: Active Protocol: Document 12/18/20 12:16 MB (Rec: 12/18/20 16:03 MB [id number]) Hip Strength Hip Manual Muscle Testing Left Flexion (L2) 4 Good Abduction 5 Normal Right Flexion (L2) 5 Normal Abduction 4 Good Knee Strength Knee Manual Muscle Testing Left Flexion (S2) 5 Normal Extension (L3) 5 Normal Right Flexion (S2) 5 Normal Extension (L3) 5 Normal Ankle/Foot Strength Ankle and Foot Manual Muscle Testing Left Dorsiflexion (L4) 5 Normal Right Dorsiflexion (L4) 5 Normal Toe Strength Toe Manual Muscle Testing Left Great Toe Extension 5 Normal Right Great Toe Extension 5 Normal PT-OP-Q Treatments Start: 12/18/20 10:43 Freq: Status: Active Protocol: Document 01/24/21 08:16 MB (Rec: 01/24/21 08:55 MB [id number]) Therapeutic Exercises Supine Exercises Diaphragm breathing Supine Exercise Name Hook lying with legs on wedge, inhale through nose and exhale through mouth Comments 10 reps slowly, pt performs exhalation with pursed lips Core progression Supine Exercise Name Abd drawing in, knee rocking, HS, mini march, knee fall out Side bilateral Comments 10 reps first two exercises and then pt c/o pain and so stopped Self-Care/Home Management Treatment Education Other Education Role of pelvic floor and pain, importance of abdominal drawing in, breathing, stopping any yoga poses that hurt, modified dog over the counter, one leg flexed up on chair and thoracic rotation, resting supine position with knees bent and feet on floor and towel roll in alignment with spine, tried various hamstring stretch positions that pt states causes pain and unclear if pain or stretch , positioning with towel roll across SI joints PT-OP-T Assessment and Plan Start: 12/18/20 10:43 Freq: Status: Active Protocol: Document 01/24/21 08:16 MB (Rec: 01/24/21 08:55 MB [id number]) Physical Therapy Assessment Goals 3 Associate Sales Representative Goal (LTG) Pt will perform progressive HEP with I including pelvic realignment, flexibility, racquet ball STM and strengthening to decrease pain and improve ROM by 02/15/21. 01/04/21: pelvic relignment ex, resisted rows, shld ext, band walk, TA march, TA , HS/Rick stretching. LTG Duration 8 weeks 2 Associate Sales Representative Goal (LTG) Pt will present with improved B passive SLR to at least 60 deg to reflect improved flexibility to allow for safe return to yoga by 02/15/21. LTG Duration 8 weeks 1 Associate Sales Representative Goal (LTG) Pt will report an overall 90% improvement in LBP to allow return to yoga and hiking and to reflect improved quality of life by 02/15/21. LTG Duration 8 weeks Assessment Summary Assessment Pt may have some pelvic floor issues given pain with gentle abdominal exercises. He has a very hard time understanding exercises and body mechanics and so unsure if he is having the same problem with yoga and he cannot clearly describe what he is doing with yoga. He does state that he is feeling much better than he did when he started PT. Con't gentle progression, consider pelvic flexibility progression . Physical Therapy Plan Frequency and Duration Frequency of Treatment 2x/Week Duration of Treatment 8 weeks Plan of Care Start Date 12/18/20 Plan of Care End Date 02/15/21 Therapeutic Interventions Therapeutic Interventions Balance Training,Canalithic Repositioning,Home Exercise Program,Joint Mobilizations, Manual Therapy,Neuromuscular Re-education,Patient/Caregiver Education,Self-Care/Home Management,Sensory Integration ,Soft Tissue Mobilization, Taping,Therapeutic Activities, Therapeutic Exercises Modalities Cold Pack/Ice Massage,Electric Stimulation,Hot Packs, Ultrasound Next Visit Focus/Plan Next Note Type Treatment Note Next Visit Plan Consider STM hip flexor and ongoing QL flexibility. Racquet ball massage. Progress breathing exercises, core exercises when tolerates, flexibility and manual work.
--- NOTE | 2021-01-28 11:12 | PT.OTN ---
Current Diagnoses Spondylosis without myelopathy or radiculopathy, site unspecified (01/28/21) Physical Therapy Treatment Note PT-OP-A Visit Information Start: 12/18/20 10:43 Freq: Status: Active Protocol: Document 01/28/21 10:32 MB (Rec: 01/28/21 11:10 MB [id number]) Out-Patient Physical Therapy Visit Information Visit Information Visit Type Treatment Note Visit Start Time 10:32 Visit Stop Time 11:10 Total Visit Minutes 38 Visit Number 9 PT-OP-B Current Condition Start: 12/18/20 10:43 Freq: Status: Active Protocol: Document 12/18/20 12:16 MB (Rec: 12/18/20 12:36 MB [id number]) Current Condition History of Current Condition Onset Date 4 months Current Complaints LBP worse in the morning History of Current Condition Pt reports moving from [place] 4 months ago. He did a lot of packing and carrying boxes up and downstairs. He drove from [place]. He was sleeping on a poor mattress or couch up until a few days ago. He just got a softer mattress. He is concernd about switching the mattresses. Pt reports 6/10 LBP worse in the morning and he feels stiff . He has no paresthesias or bowel or bladder issues. Pt brings in his x-ray report. He wants to keep active, hiking 15-20 miles a week. 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 He likes to do yoga. He is not doing extension positions with yoga. Pt sleeps on his side without pillow support between legs. Prior Treatments and Tests Lumbar x-ray 12/06/20: mod to severe L5-S1 spondylosis and diffuse facet arthropathy, multilevel degenerative endplate sclerosis and spurring, straightening of the normal lordotic curvature. Treatment Goals Patient/Caregiver Goals To decrease pain, increase strength and maintain activity level PT-OP-C Subjective Start: 12/18/20 10:43 Freq: Status: Active Protocol: Document 01/28/21 10:32 MB (Rec: 01/28/21 11:10 MB [id number]) OP-PT Subjective Patient Comments Patient Comments Pt sends email and then re- iterates that while he had pain with trying his core engagement, he felt better later. He feels most benefit from core and manual work and would like to focus on these. PT-OP-J Posture/Palpation/Skin Start: 12/18/20 10:43 Freq: Status: Active Protocol: Document 12/18/20 12:16 MB (Rec: 12/18/20 16:06 MB [id number]) Posture Evaluation Comments Posture Comments Standing with socks and without shoes: Forward head, rounded shoulders, Dowager's hump, decreased thoracic kyphosis, anterior tilt pelvis , thoracic convexity L that transitions to right convexity , right iliac crest higher than the left. PT-OP-K Range of Motion Start: 12/18/20 10:43 Freq: Status: Active Protocol: Document 12/18/20 12:16 MB (Rec: 12/18/20 16:03 MB [id number]) Hip Goniometric Range of Motion Hip ROM Limitations Comments Passive SLR: right 25 deg and left 30 deg PT-OP-M Strength Start: 12/18/20 10:43 Freq: Status: Active Protocol: Document 12/18/20 12:16 MB (Rec: 12/18/20 16:03 MB [id number]) Hip Strength Hip Manual Muscle Testing Left Flexion (L2) 4 Good Abduction 5 Normal Right Flexion (L2) 5 Normal Abduction 4 Good Knee Strength Knee Manual Muscle Testing Left Flexion (S2) 5 Normal Extension (L3) 5 Normal Right Flexion (S2) 5 Normal Extension (L3) 5 Normal Ankle/Foot Strength Ankle and Foot Manual Muscle Testing Left Dorsiflexion (L4) 5 Normal Right Dorsiflexion (L4) 5 Normal Toe Strength Toe Manual Muscle Testing Left Great Toe Extension 5 Normal Right Great Toe Extension 5 Normal PT-OP-Q Treatments Start: 12/18/20 10:43 Freq: Status: Active Protocol: Document 01/28/21 10:32 MB (Rec: 01/28/21 11:10 MB [id number]) Therapeutic Exercises Standing Exercises 3 Standing Exercise Name Racquet ball massage: QL, intrascapular, glutes, hip rotators Side bilateral Comments Pt prefers hip rotators and glutes, to add to HEP Manual Therapy Treatment Other Other Manual Treatments B side lying: rib recoil, QL, intrascapular and hip rotator and TFL STM and pt responds well, coordinated pt breathing with rib recoil. STM B vastus lateralis PT-OP-T Assessment and Plan Start: 12/18/20 10:43 Freq: Status: Active Protocol: Document 01/28/21 10:32 MB (Rec: 01/28/21 11:10 MB [id number]) Physical Therapy Assessment Goals 3 Senior Living Goal (LTG) Pt will perform progressive HEP with I including pelvic realignment, flexibility, racquet ball STM and strengthening to decrease pain and improve ROM by 02/15/21. 01/04/21: pelvic relignment ex, resisted rows, shld ext, band walk, TA december, TA , HS/Rick stretching. LTG Duration 8 weeks 2 Senior Living Goal (LTG) Pt will present with improved B passive SLR to at least 60 deg to reflect improved flexibility to allow for safe return to yoga by 02/15/21. LTG Duration 8 weeks 1 Branch Credit Counselor Goal (LTG) Pt will report an overall 90% improvement in LBP to allow return to yoga and hiking and to reflect improved quality of life by 02/15/21. LTG Duration 8 weeks Assessment Summary Assessment Myofascial improvements with manual work today and he has no pain with rolling over the first time today and only a little the second time. Physical Therapy Plan Frequency and Duration Frequency of Treatment 2x/Week Duration of Treatment 8 weeks Plan of Care Start Date 12/18/20 Plan of Care End Date 02/15/21 Therapeutic Interventions Therapeutic Interventions Balance Training,Canalithic Repositioning,Home Exercise Program,Joint Mobilizations, Manual Therapy,Neuromuscular Re-education,Patient/Caregiver Education,Self-Care/Home Management,Sensory Integration ,Soft Tissue Mobilization, Taping,Therapeutic Activities, Therapeutic Exercises Modalities Cold Pack/Ice Massage,Electric Stimulation,Hot Packs, Ultrasound Next Visit Focus/Plan Next Note Type Treatment Note Next Visit Plan Consider STM hip flexor and ongoing QL flexibility. Racquet ball massage. Progress breathing exercises, core exercises when tolerates, flexibility and manual work.
--- NOTE | 2021-02-01 11:18 | PT.OTN ---
Current Diagnoses Spondylosis without myelopathy or radiculopathy, site unspecified (02/01/21) Physical Therapy Treatment Note PT-OP-A Visit Information Start: 12/18/20 10:43 Freq: Status: Active Protocol: Document 02/01/21 10:33 MB (Rec: 02/01/21 10:50 MB [id number]) Out-Patient Physical Therapy Visit Information Visit Information Visit Type Progress Note Visit Start Time 10:33 Visit Stop Time 11:15 Total Visit Minutes 42 Visit Number 10 PT-OP-B Current Condition Start: 12/18/20 10:43 Freq: Status: Active Protocol: Document 12/18/20 12:16 MB (Rec: 12/18/20 12:36 MB [id number]) Current Condition History of Current Condition Onset Date 4 months Current Complaints LBP worse in the morning History of Current Condition Pt reports moving from [place] 4 months ago. He did a lot of packing and carrying boxes up and downstairs. He drove from [place]. He was sleeping on a poor mattress or couch up until a few days ago. He just got a softer mattress. He is concernd about switching the mattresses. Pt reports 6/10 LBP worse in the morning and he feels stiff . He has no paresthesias or bowel or bladder issues. Pt brings in his x-ray report. He wants to keep active, hiking 15-20 miles a week. 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 He likes to do yoga. He is not doing extension positions with yoga. Pt sleeps on his side without pillow support between legs. Prior Treatments and Tests Lumbar x-ray 12/06/20: mod to severe L5-S1 spondylosis and diffuse facet arthropathy, multilevel degenerative endplate sclerosis and spurring, straightening of the normal lordotic curvature. Treatment Goals Patient/Caregiver Goals To decrease pain, increase strength and maintain activity level PT-OP-C Subjective Start: 12/18/20 10:43 Freq: Status: Active Protocol: Document 02/01/21 10:33 MB (Rec: 02/01/21 10:50 MB [id number]) OP-PT Subjective Patient Comments Patient Comments Pt states that he has had marked improvement since starting PT. He is sleeping in the bed, is back to doing some yoga and now has tightness and discomfort rather than pain. PT-OP-J Posture/Palpation/Skin Start: 12/18/20 10:43 Freq: Status: Active Protocol: Document 12/18/20 12:16 MB (Rec: 12/18/20 16:06 MB [id number]) Posture Evaluation Comments Posture Comments Standing with socks and without shoes: Forward head, rounded shoulders, Dowager's hump, decreased thoracic kyphosis, anterior tilt pelvis , thoracic convexity L that transitions to right convexity , right iliac crest higher than the left. PT-OP-K Range of Motion Start: 12/18/20 10:43 Freq: Status: Active Protocol: Document 12/18/20 12:16 MB (Rec: 12/18/20 16:03 MB [id number]) Hip Goniometric Range of Motion Hip ROM Limitations Comments Passive SLR: right 25 deg and left 30 deg PT-OP-M Strength Start: 12/18/20 10:43 Freq: Status: Active Protocol: Document 12/18/20 12:16 MB (Rec: 12/18/20 16:03 MB [id number]) Hip Strength Hip Manual Muscle Testing Left Flexion (L2) 4 Good Abduction 5 Normal Right Flexion (L2) 5 Normal Abduction 4 Good Knee Strength Knee Manual Muscle Testing Left Flexion (S2) 5 Normal Extension (L3) 5 Normal Right Flexion (S2) 5 Normal Extension (L3) 5 Normal Ankle/Foot Strength Ankle and Foot Manual Muscle Testing Left Dorsiflexion (L4) 5 Normal Right Dorsiflexion (L4) 5 Normal Toe Strength Toe Manual Muscle Testing Left Great Toe Extension 5 Normal Right Great Toe Extension 5 Normal PT-OP-Q Treatments Start: 12/18/20 10:43 Freq: Status: Active Protocol: Document 02/01/21 10:33 MB (Rec: 02/01/21 10:50 MB [id number]) Therapeutic Exercises Supine Exercises Diaphragm breathing Comments Pt to con't at home with stress Core progression Comments Revisit core exercises in future treatments Pelvic realignment exercises Comments Pt is performing I at home Standing Exercises 3 Comments Pt performs well and I today Other Exercises Revised HEP Comments Performed this today and pt to con't with racquet ball STM, pelvic, yoga ex Manual Therapy Treatment Other Other Manual Treatments Pt kneeling on wedge and leaning over mat: STM B thoracic and lumbar paraspinals, QL, B hip rotators PT-OP-T Assessment and Plan Start: 12/18/20 10:43 Freq: Status: Active Protocol: Document 02/01/21 10:33 MB (Rec: 02/01/21 10:50 MB [id number]) Physical Therapy Assessment Goals 3 Correction Goal (LTG) Pt will perform progressive HEP with I including pelvic realignment, flexibility, racquet ball STM and strengthening to decrease pain and improve ROM by 04/03/21. 02/01/21: Pt is performing pelvic realignment exercises, racquet ball exercises and is trying to draw his belly button in with rolling over in the bed. LTG Duration 8 weeks 2 Correction Goal (LTG) Pt will present with improved B passive SLR to at least 60 deg to reflect improved flexibility to allow for safe return to yoga by 04/03/21. LTG Duration 8 weeks 1 Neon Technician Goal (LTG) Pt will report an overall 90% improvement in LBP in order to improve quality of life by 04/03/21. 02/01/21: Pt reports an overall 50% improvement in back pain since starting PT. He is back to modified yoga, is making lifestyle changes with work and he is hiking some. LTG Duration 8 weeks Assessment Summary Assessment Pt has progressed towards PT goals since starting therapy. He has gotten back to modified yoga and is able to sleep in the bed. He con't to benefit from PT to improve ROM, core strength, flexibility and pain . Physical Therapy Plan Frequency and Duration Frequency of Treatment 2x/Week Duration of Treatment 8 weeks Plan of Care Start Date 02/01/21 Plan of Care End Date 04/03/21 Therapeutic Interventions Therapeutic Interventions Balance Training,Canalithic Repositioning,Home Exercise Program,Joint Mobilizations, Manual Therapy,Neuromuscular Re-education,Patient/Caregiver Education,Self-Care/Home Management,Sensory Integration ,Soft Tissue Mobilization, Taping,Therapeutic Activities, Therapeutic Exercises Modalities Cold Pack/Ice Massage,Electric Stimulation,Hot Packs, Ultrasound Next Visit Focus/Plan Next Note Type Treatment Note Next Visit Plan Progress breathing exercises, core exercises when tolerates, flexibility and manual work.
--- NOTE | 2021-02-04 12:20 | PT.OTN ---
Current Diagnoses Spondylosis without myelopathy or radiculopathy, site unspecified (02/04/21) Physical Therapy Treatment Note PT-OP-A Visit Information Start: 12/18/20 10:43 Freq: Status: Active Protocol: Document 02/04/21 10:34 MB (Rec: 02/04/21 11:17 MB [id number]) Out-Patient Physical Therapy Visit Information Visit Information Visit Type Treatment Note Visit Start Time 10:34 Visit Stop Time 11:15 Total Visit Minutes 41 Visit Number 11 PT-OP-B Current Condition Start: 12/18/20 10:43 Freq: Status: Active Protocol: Document 12/18/20 12:16 MB (Rec: 12/18/20 12:36 MB [id number]) Current Condition History of Current Condition Onset Date 4 months Current Complaints LBP worse in the morning History of Current Condition Pt reports moving from [place] 4 months ago. He did a lot of packing and carrying boxes up and downstairs. He drove from [place]. He was sleeping on a poor mattress or couch up until a few days ago. He just got a softer mattress. He is concernd about switching the mattresses. Pt reports 6/10 LBP worse in the morning and he feels stiff . He has no paresthesias or bowel or bladder issues. Pt brings in his x-ray report. He wants to keep active, hiking 15-20 miles a week. 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 He likes to do yoga. He is not doing extension positions with yoga. Pt sleeps on his side without pillow support between legs. Prior Treatments and Tests Lumbar x-ray 12/06/20: mod to severe L5-S1 spondylosis and diffuse facet arthropathy, multilevel degenerative endplate sclerosis and spurring, straightening of the normal lordotic curvature. Treatment Goals Patient/Caregiver Goals To decrease pain, increase strength and maintain activity level PT-OP-C Subjective Start: 12/18/20 10:43 Freq: Status: Active Protocol: Document 02/04/21 10:34 MB (Rec: 02/04/21 11:17 MB [id number]) OP-PT Subjective Patient Comments Patient Comments Pt states that he did a 10 mile hike on Thursday and it might have been pushing it a little. Pt did not have time to do pelvic realignment exercises this morning. PT-OP-J Posture/Palpation/Skin Start: 12/18/20 10:43 Freq: Status: Active Protocol: Document 12/18/20 12:16 MB (Rec: 12/18/20 16:06 MB [id number]) Posture Evaluation Comments Posture Comments Standing with socks and without shoes: Forward head, rounded shoulders, Dowager's hump, decreased thoracic kyphosis, anterior tilt pelvis , thoracic convexity L that transitions to right convexity , right iliac crest higher than the left. PT-OP-K Range of Motion Start: 12/18/20 10:43 Freq: Status: Active Protocol: Document 12/18/20 12:16 MB (Rec: 12/18/20 16:03 MB [id number]) Hip Goniometric Range of Motion Hip ROM Limitations Comments Passive SLR: right 25 deg and left 30 deg PT-OP-M Strength Start: 12/18/20 10:43 Freq: Status: Active Protocol: Document 12/18/20 12:16 MB (Rec: 12/18/20 16:03 MB [id number]) Hip Strength Hip Manual Muscle Testing Left Flexion (L2) 4 Good Abduction 5 Normal Right Flexion (L2) 5 Normal Abduction 4 Good Knee Strength Knee Manual Muscle Testing Left Flexion (S2) 5 Normal Extension (L3) 5 Normal Right Flexion (S2) 5 Normal Extension (L3) 5 Normal Ankle/Foot Strength Ankle and Foot Manual Muscle Testing Left Dorsiflexion (L4) 5 Normal Right Dorsiflexion (L4) 5 Normal Toe Strength Toe Manual Muscle Testing Left Great Toe Extension 5 Normal Right Great Toe Extension 5 Normal PT-OP-Q Treatments Start: 12/18/20 10:43 Freq: Status: Active Protocol: Document 02/04/21 10:34 MB (Rec: 02/04/21 11:17 MB [id number]) Therapeutic Exercises Supine Exercises Core progression Side bilateral Reps/Minutes 10 reps all, cues for breathing Comments Abdominal drawing in, HS Pelvic realignment exercises Side bilateral Comments 5 reps all exercises, 3 sec hold Manual Therapy Treatment Other Other Manual Treatments Pt supine with legs up on pillow: B hip flexor STM; Pt prone over wedge and resting over mat: STM B thoracolumbar paraspinals and QL. Pt con't with edematous area L QL area that is softer to palpation compared to the right. Recommend that pt follow-up with Dr. Babin for him to look at PT-OP-T Assessment and Plan Start: 12/18/20 10:43 Freq: Status: Active Protocol: Document 02/04/21 10:34 MB (Rec: 02/04/21 11:17 MB [id number]) Physical Therapy Assessment Goals 3 Gas Transfer Operator Goal (LTG) Pt will perform progressive HEP with I including pelvic realignment, flexibility, racquet ball STM and strengthening to decrease pain and improve ROM by 04/03/21. 02/01/21: Pt is performing pelvic realignment exercises, racquet ball exercises and is trying to draw his belly button in with rolling over in the bed. LTG Duration 8 weeks 2 Gas Transfer Operator Goal (LTG) Pt will present with improved B passive SLR to at least 60 deg to reflect improved flexibility to allow for safe return to yoga by 04/03/21. LTG Duration 8 weeks 1 Penitentiary Goal (LTG) Pt will report an overall 90% improvement in LBP in order to improve quality of life by 04/03/21. 02/01/21: Pt reports an overall 50% improvement in back pain since starting PT. He is back to modified yoga, is making lifestyle changes with work and he is hiking some. LTG Duration 8 weeks Assessment Summary Assessment Pt does not want anymore handouts and asks PT to send him things electronically. PT ed pt that he can take photos of the handouts but PT does not have a way to send electronically right now. Re- ed core exercises today and pt tolerates well. Con't to monitor pt responses. Pt presents with edema-type presentation over left QL area that is softer to palpation than the right. Given that this is his area of pain and he reports there is calcification per x-ray findings communicated by provider, PT recommends that he follow-up with Dr. Babin. PT would just like to make sure that there is not another issue (visceral, other spinal change) that is causing this edema. It has not changed much since pt has started working with PT. Physical Therapy Plan Frequency and Duration Frequency of Treatment 2x/Week Duration of Treatment 8 weeks Plan of Care Start Date 02/01/21 Plan of Care End Date 04/03/21 Therapeutic Interventions Therapeutic Interventions Balance Training,Canalithic Repositioning,Home Exercise Program,Joint Mobilizations, Manual Therapy,Neuromuscular Re-education,Patient/Caregiver Education,Self-Care/Home Management,Sensory Integration ,Soft Tissue Mobilization, Taping,Therapeutic Activities, Therapeutic Exercises Modalities Cold Pack/Ice Massage,Electric Stimulation,Hot Packs, Ultrasound Other Referrals/Consults Referrals/Consults Recommended Follow-up with Dr. Babin about edematous area left QL Next Visit Focus/Plan Next Note Type Treatment Note Next Visit Plan Progress breathing exercises, flexibility and manual work.
--- NOTE | 2021-02-07 11:17 | PT.OTN ---
Current Diagnoses Spondylosis without myelopathy or radiculopathy, site unspecified (02/07/21) Physical Therapy Treatment Note PT-OP-A Visit Information Start: 12/18/20 10:43 Freq: Status: Active Protocol: Document 02/07/21 10:32 MB (Rec: 02/07/21 10:50 MB [id number]) Out-Patient Physical Therapy Visit Information Visit Information Visit Type Treatment Note Visit Start Time 10:32 Visit Stop Time 11:15 Total Visit Minutes 43 Visit Number 12 PT-OP-B Current Condition Start: 12/18/20 10:43 Freq: Status: Active Protocol: Document 12/18/20 12:16 MB (Rec: 12/18/20 12:36 MB [id number]) Current Condition History of Current Condition Onset Date 4 months Current Complaints LBP worse in the morning History of Current Condition Pt reports moving from [place] 4 months ago. He did a lot of packing and carrying boxes up and downstairs. He drove from [place]. He was sleeping on a poor mattress or couch up until a few days ago. He just got a softer mattress. He is concernd about switching the mattresses. Pt reports 6/10 LBP worse in the morning and he feels stiff . He has no paresthesias or bowel or bladder issues. Pt brings in his x-ray report. He wants to keep active, hiking 15-20 miles a week. 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 He likes to do yoga. He is not doing extension positions with yoga. Pt sleeps on his side without pillow support between legs. Prior Treatments and Tests Lumbar x-ray 12/06/20: mod to severe L5-S1 spondylosis and diffuse facet arthropathy, multilevel degenerative endplate sclerosis and spurring, straightening of the normal lordotic curvature. Treatment Goals Patient/Caregiver Goals To decrease pain, increase strength and maintain activity level PT-OP-C Subjective Start: 12/18/20 10:43 Freq: Status: Active Protocol: Document 02/07/21 10:32 MB (Rec: 02/07/21 10:50 MB [id number]) OP-PT Subjective Patient Comments Patient Comments Pt states he felt good during last PT treatment but then was really sore afterwards. He got an appointment with Dr. Babin 02/25/21. PT-OP-J Posture/Palpation/Skin Start: 12/18/20 10:43 Freq: Status: Active Protocol: Document 12/18/20 12:16 MB (Rec: 12/18/20 16:06 MB [id number]) Posture Evaluation Comments Posture Comments Standing with socks and without shoes: Forward head, rounded shoulders, Dowager's hump, decreased thoracic kyphosis, anterior tilt pelvis , thoracic convexity L that transitions to right convexity , right iliac crest higher than the left. PT-OP-K Range of Motion Start: 12/18/20 10:43 Freq: Status: Active Protocol: Document 12/18/20 12:16 MB (Rec: 12/18/20 16:03 MB [id number]) Hip Goniometric Range of Motion Hip ROM Limitations Comments Passive SLR: right 25 deg and left 30 deg PT-OP-M Strength Start: 12/18/20 10:43 Freq: Status: Active Protocol: Document 12/18/20 12:16 MB (Rec: 12/18/20 16:03 MB [id number]) Hip Strength Hip Manual Muscle Testing Left Flexion (L2) 4 Good Abduction 5 Normal Right Flexion (L2) 5 Normal Abduction 4 Good Knee Strength Knee Manual Muscle Testing Left Flexion (S2) 5 Normal Extension (L3) 5 Normal Right Flexion (S2) 5 Normal Extension (L3) 5 Normal Ankle/Foot Strength Ankle and Foot Manual Muscle Testing Left Dorsiflexion (L4) 5 Normal Right Dorsiflexion (L4) 5 Normal Toe Strength Toe Manual Muscle Testing Left Great Toe Extension 5 Normal Right Great Toe Extension 5 Normal PT-OP-Q Treatments Start: 12/18/20 10:43 Freq: Status: Active Protocol: Document 02/07/21 10:32 MB (Rec: 02/07/21 10:50 MB [id number]) Manual Therapy Treatment Other Other Manual Treatments B side lying QL, thoracolumbar parapsinal, TFL and vastus lateralis STM and pt with assisted breathing for rib recoil Self-Care/Home Management Treatment Education Other Education Benefits of sitting on 65 cm therapy ball, good computer ergonomics with high low table with separate driver board, possible DO consult, relaxing arms with typing and driving, squeezing glutes with driving, drinking lots of water and stopping often, towel roll support behind back and under ischial tubs PT-OP-T Assessment and Plan Start: 12/18/20 10:43 Freq: Status: Active Protocol: Document 02/07/21 10:32 MB (Rec: 02/07/21 10:50 MB [id number]) Physical Therapy Assessment Goals 3 Technical Analyst Goal (LTG) Pt will perform progressive HEP with I including pelvic realignment, flexibility, racquet ball STM and strengthening to decrease pain and improve ROM by 04/03/21. 02/01/21: Pt is performing pelvic realignment exercises, racquet ball exercises and is trying to draw his belly button in with rolling over in the bed. LTG Duration 8 weeks 2 Technical Analyst Goal (LTG) Pt will present with improved B passive SLR to at least 60 deg to reflect improved flexibility to allow for safe return to yoga by 04/03/21. LTG Duration 8 weeks 1 Mcc Goal (LTG) Pt will report an overall 90% improvement in LBP in order to improve quality of life by 04/03/21. 02/01/21: Pt reports an overall 50% improvement in back pain since starting PT. He is back to modified yoga, is making lifestyle changes with work and he is hiking some. LTG Duration 8 weeks Assessment Summary Assessment Education today and ongoing manual work, con't per POC. Physical Therapy Plan Frequency and Duration Frequency of Treatment 2x/Week Duration of Treatment 8 weeks Plan of Care Start Date 02/01/21 Plan of Care End Date 04/03/21 Therapeutic Interventions Therapeutic Interventions Balance Training,Canalithic Repositioning,Home Exercise Program,Joint Mobilizations, Manual Therapy,Neuromuscular Re-education,Patient/Caregiver Education,Self-Care/Home Management,Sensory Integration ,Soft Tissue Mobilization, Taping,Therapeutic Activities, Therapeutic Exercises Modalities Cold Pack/Ice Massage,Electric Stimulation,Hot Packs, Ultrasound Other Referrals/Consults Referrals/Consults Recommended Follow-up with Dr. Babin about edematous area left QL, consider DO consult Next Visit Focus/Plan Next Note Type Treatment Note Next Visit Plan Progress breathing exercises, flexibility and manual work.
--- NOTE | 2021-02-25 11:17 | PT.OTN ---
Current Diagnoses Spondylosis without myelopathy or radiculopathy, site unspecified (02/25/21) Physical Therapy Treatment Note PT-OP-A Visit Information Start: 12/18/20 10:43 Freq: Status: Active Protocol: Document 02/25/21 10:31 MB (Rec: 02/25/21 11:17 MB [id number]) Out-Patient Physical Therapy Visit Information Visit Information Visit Type Treatment Note Visit Start Time 10:31 Visit Stop Time 11:15 Total Visit Minutes 44 Visit Number 13 PT-OP-B Current Condition Start: 12/18/20 10:43 Freq: Status: Active Protocol: Document 12/18/20 12:16 MB (Rec: 12/18/20 12:36 MB [id number]) Current Condition History of Current Condition Onset Date 4 months Current Complaints LBP worse in the morning History of Current Condition Pt reports moving from [place] 4 months ago. He did a lot of packing and carrying boxes up and downstairs. He drove from [place]. He was sleeping on a poor mattress or couch up until a few days ago. He just got a softer mattress. He is concernd about switching the mattresses. Pt reports 6/10 LBP worse in the morning and he feels stiff . He has no paresthesias or bowel or bladder issues. Pt brings in his x-ray report. He wants to keep active, hiking 15-20 miles a week. 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 He likes to do yoga. He is not doing extension positions with yoga. Pt sleeps on his side without pillow support between legs. Prior Treatments and Tests Lumbar x-ray 12/06/20: mod to severe L5-S1 spondylosis and diffuse facet arthropathy, multilevel degenerative endplate sclerosis and spurring, straightening of the normal lordotic curvature. Treatment Goals Patient/Caregiver Goals To decrease pain, increase strength and maintain activity level PT-OP-C Subjective Start: 12/18/20 10:43 Freq: Status: Active Protocol: Document 02/25/21 10:31 MB (Rec: 02/25/21 11:17 MB [id number]) OP-PT Subjective Patient Comments Patient Comments Something about the drive to [place] was helpful. He was very active on vacation and he felt better. Last week not so much . He sat at the computer for training for his new job and then when he cleaned, his symptoms were exacerbated. He knows he needs to take breaks for walking. PT-OP-J Posture/Palpation/Skin Start: 12/18/20 10:43 Freq: Status: Active Protocol: Document 12/18/20 12:16 MB (Rec: 12/18/20 16:06 MB [id number]) Posture Evaluation Comments Posture Comments Standing with socks and without shoes: Forward head, rounded shoulders, Dowager's hump, decreased thoracic kyphosis, anterior tilt pelvis , thoracic convexity L that transitions to right convexity , right iliac crest higher than the left. PT-OP-K Range of Motion Start: 12/18/20 10:43 Freq: Status: Active Protocol: Document 12/18/20 12:16 MB (Rec: 12/18/20 16:03 MB [id number]) Hip Goniometric Range of Motion Hip ROM Limitations Comments Passive SLR: right 25 deg and left 30 deg PT-OP-M Strength Start: 12/18/20 10:43 Freq: Status: Active Protocol: Document 12/18/20 12:16 MB (Rec: 12/18/20 16:03 MB [id number]) Hip Strength Hip Manual Muscle Testing Left Flexion (L2) 4 Good Abduction 5 Normal Right Flexion (L2) 5 Normal Abduction 4 Good Knee Strength Knee Manual Muscle Testing Left Flexion (S2) 5 Normal Extension (L3) 5 Normal Right Flexion (S2) 5 Normal Extension (L3) 5 Normal Ankle/Foot Strength Ankle and Foot Manual Muscle Testing Left Dorsiflexion (L4) 5 Normal Right Dorsiflexion (L4) 5 Normal Toe Strength Toe Manual Muscle Testing Left Great Toe Extension 5 Normal Right Great Toe Extension 5 Normal PT-OP-Q Treatments Start: 12/18/20 10:43 Freq: Status: Active Protocol: Document 02/25/21 10:31 MB (Rec: 02/25/21 11:17 MB [id number]) Manual Therapy Treatment Other Other Manual Treatments Pt kneeling on wedge and resting over plinth: STM B thoracolumbar paraspinals, QL, hip rotators PT-OP-T Assessment and Plan Start: 12/18/20 10:43 Freq: Status: Active Protocol: Document 02/25/21 10:31 MB (Rec: 02/25/21 11:17 MB [id number]) Physical Therapy Assessment Goals 3 Automotive Drivability Technician Goal (LTG) Pt will perform progressive HEP with I including pelvic realignment, flexibility, racquet ball STM and strengthening to decrease pain and improve ROM by 04/03/21. 02/01/21: Pt is performing pelvic realignment exercises, racquet ball exercises and is trying to draw his belly button in with rolling over in the bed. LTG Duration 8 weeks 2 Correction Goal (LTG) Pt will present with improved B passive SLR to at least 60 deg to reflect improved flexibility to allow for safe return to yoga by 04/03/21. LTG Duration 8 weeks 1 Automotive Drivability Technician Goal (LTG) Pt will report an overall 90% improvement in LBP in order to improve quality of life by 04/03/21. 02/01/21: Pt reports an overall 50% improvement in back pain since starting PT. He is back to modified yoga, is making lifestyle changes with work and he is hiking some. LTG Duration 8 weeks Assessment Summary Assessment Pt reports that Dr. Babin was not concerned about the edematous area over left QL. He will be typing all day long for his new job. Pt states that he will only be able to come to PT 1x/wk. Will con't body mechanics, exercises, breathing training and manual work. Anticipate that at d/c, pt will benefit from regular manual work from massage therapist and/or DO. His L4-L5 vertebra are mal-aligned and this could be addressed by DO. PT will con't myofascial treatments during this course. Physical Therapy Plan Frequency and Duration Frequency of Treatment 2x/Week Duration of Treatment 8 weeks Plan of Care Start Date 02/01/21 Plan of Care End Date 04/03/21 Therapeutic Interventions Therapeutic Interventions Balance Training,Canalithic Repositioning,Home Exercise Program,Joint Mobilizations, Manual Therapy,Neuromuscular Re-education,Patient/Caregiver Education,Self-Care/Home Management,Sensory Integration ,Soft Tissue Mobilization, Taping,Therapeutic Activities, Therapeutic Exercises Modalities Cold Pack/Ice Massage,Electric Stimulation,Hot Packs, Ultrasound Other Referrals/Consults Referrals/Consults Recommended Consider DO consult, massage therapy at d/c Next Visit Focus/Plan Next Note Type Treatment Note Next Visit Plan Progress breathing exercises, flexibility and manual work.
--- NOTE | 2021-03-18 13:52 | PT.OTN ---
Addendum entered and electronically signed by Oralia Vann, PT 04/09/21 15:56: Resend to Dr. Babin Original Note: Current Diagnoses Spondylosis without myelopathy or radiculopathy, site unspecified (03/18/21) Physical Therapy Treatment Note PT-OP-A Visit Information Start: 12/18/20 10:43 Freq: Status: Active Protocol: Document 03/18/21 13:00 MB (Rec: 03/18/21 13:52 MB [id number]) Out-Patient Physical Therapy Visit Information Visit Information Visit Type Treatment Note Visit Start Time 13:00 Visit Stop Time 13:45 Total Visit Minutes 45 Visit Number 14 PT-OP-B Current Condition Start: 12/18/20 10:43 Freq: Status: Active Protocol: Document 12/18/20 12:16 MB (Rec: 12/18/20 12:36 MB [id number]) Current Condition History of Current Condition Onset Date 4 months Current Complaints LBP worse in the morning History of Current Condition Pt reports moving from [place] 4 months ago. He did a lot of packing and carrying boxes up and downstairs. He drove from [place]. He was sleeping on a poor mattress or couch up until a few days ago. He just got a softer mattress. He is concernd about switching the mattresses. Pt reports 6/10 LBP worse in the morning and he feels stiff . He has no paresthesias or bowel or bladder issues. Pt brings in his x-ray report. He wants to keep active, hiking 15-20 miles a week. 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 He likes to do yoga. He is not doing extension positions with yoga. Pt sleeps on his side without pillow support between legs. Prior Treatments and Tests Lumbar x-ray 12/06/20: mod to severe L5-S1 spondylosis and diffuse facet arthropathy, multilevel degenerative endplate sclerosis and spurring, straightening of the normal lordotic curvature. Treatment Goals Patient/Caregiver Goals To decrease pain, increase strength and maintain activity level PT-OP-C Subjective Start: 12/18/20 10:43 Freq: Status: Active Protocol: Document 03/18/21 13:00 MB (Rec: 03/18/21 13:52 MB [id number]) OP-PT Subjective Patient Comments Patient Comments Pt states that he got an adjustable table that moves up and down and a 75 cm therapy ball. He is doing his new job as living coach. He is doing some new stuff with yoga. Pt would like to practice lifting . PT-OP-J Posture/Palpation/Skin Start: 12/18/20 10:43 Freq: Status: Active Protocol: Document 12/18/20 12:16 MB (Rec: 12/18/20 16:06 MB [id number]) Posture Evaluation Comments Posture Comments Standing with socks and without shoes: Forward head, rounded shoulders, Dowager's hump, decreased thoracic kyphosis, anterior tilt pelvis , thoracic convexity L that transitions to right convexity , right iliac crest higher than the left. PT-OP-K Range of Motion Start: 12/18/20 10:43 Freq: Status: Active Protocol: Document 12/18/20 12:16 MB (Rec: 12/18/20 16:03 MB [id number]) Hip Goniometric Range of Motion Hip ROM Limitations Comments Passive SLR: right 25 deg and left 30 deg PT-OP-M Strength Start: 12/18/20 10:43 Freq: Status: Active Protocol: Document 12/18/20 12:16 MB (Rec: 12/18/20 16:03 MB [id number]) Hip Strength Hip Manual Muscle Testing Left Flexion (L2) 4 Good Abduction 5 Normal Right Flexion (L2) 5 Normal Abduction 4 Good Knee Strength Knee Manual Muscle Testing Left Flexion (S2) 5 Normal Extension (L3) 5 Normal Right Flexion (S2) 5 Normal Extension (L3) 5 Normal Ankle/Foot Strength Ankle and Foot Manual Muscle Testing Left Dorsiflexion (L4) 5 Normal Right Dorsiflexion (L4) 5 Normal Toe Strength Toe Manual Muscle Testing Left Great Toe Extension 5 Normal Right Great Toe Extension 5 Normal PT-OP-Q Treatments Start: 12/18/20 10:43 Freq: Status: Active Protocol: Document 03/18/21 13:00 MB (Rec: 03/18/21 13:52 MB [id number]) Manual Therapy Treatment Other Other Manual Treatments Pt kneeling on wedge and resting over plinth: STM B thoracolumbar paraspinals, QL, hip rotators, left QL edema is 25% better Self-Care/Home Management Treatment Education Other Education Extensive time reviewing body mechanics, lifting techniques, ergonomics for sitting at desk, PT provides handouts and pt practices with PT assist and cues: cues for wide LISSA, hinge at hips, squeeze glutes, engage core, pt practices extensively and feels more confident after practice using his 75 cm therapy ball and two side of wooden boxes in clinic gym PT-OP-T Assessment and Plan Start: 12/18/20 10:43 Freq: Status: Active Protocol: Document 03/18/21 13:00 MB (Rec: 03/18/21 13:52 MB [id number]) Physical Therapy Assessment Goals 3 Outreach Consultant Goal (LTG) Pt will perform progressive HEP with I including pelvic realignment, flexibility, racquet ball STM and strengthening to decrease pain and improve ROM by 04/03/21. 02/01/21: Pt is performing pelvic realignment exercises, racquet ball exercises and is trying to draw his belly button in with rolling over in the bed. LTG Duration 8 weeks 2 Outreach Consultant Goal (LTG) Pt will present with improved B passive SLR to at least 60 deg to reflect improved flexibility to allow for safe return to yoga by 04/03/21. LTG Duration 8 weeks 1 Retirement Goal (LTG) Pt will report an overall 90% improvement in LBP in order to improve quality of life by 04/03/21. 02/01/21: Pt reports an overall 50% improvement in back pain since starting PT. He is back to modified yoga, is making lifestyle changes with work and he is hiking some. LTG Duration 8 weeks Assessment Summary Assessment Initiated body mechanics training today and pt is anxious about performing it and then finally does better with practice. Con't education and manual work, decrease to 1x/wk in April. Physical Therapy Plan Frequency and Duration Frequency of Treatment 2x/Week Duration of Treatment 8 weeks Plan of Care Start Date 02/01/21 Plan of Care End Date 04/03/21 Therapeutic Interventions Therapeutic Interventions Balance Training,Canalithic Repositioning,Home Exercise Program,Joint Mobilizations, Manual Therapy,Neuromuscular Re-education,Patient/Caregiver Education,Self-Care/Home Management,Sensory Integration ,Soft Tissue Mobilization, Taping,Therapeutic Activities, Therapeutic Exercises Modalities Cold Pack/Ice Massage,Electric Stimulation,Hot Packs, Ultrasound Other Referrals/Consults Referrals/Consults Recommended Consider DO consult, massage therapy at d/c Next Visit Focus/Plan Next Note Type Treatment Note Next Visit Plan Progress breathing exercises, flexibility and manual work.
--- NOTE | 2021-04-08 08:30 | PT.OPDS ---
Current Diagnoses Spondylosis without myelopathy or radiculopathy, site unspecified (03/18/21) Visit Care Team Role Provider Type Dick Babin MD Attending Provider Physician Primary Care Provider Referring Provider Specialty: Internal Medicine Address: [address] [place] [address], [address], [address] Email: [email or web address] Visit Number Visit Number 14 Discharge Summary PT-OP-B Current Condition Start: 12/18/20 10:43 Freq: Status: Active Protocol: Document 12/18/20 12:16 MB (Rec: 12/18/20 12:36 MB [id number]) Current Condition History of Current Condition Onset Date 4 months Current Complaints LBP worse in the morning History of Current Condition Pt reports moving from [place] 4 months ago. He did a lot of packing and carrying boxes up and downstairs. He drove from [place]. He was sleeping on a poor mattress or couch up until a few days ago. He just got a softer mattress. He is concernd about switching the mattresses. Pt reports 6/10 LBP worse in the morning and he feels stiff . He has no paresthesias or bowel or bladder issues. Pt brings in his x-ray report. He wants to keep active, hiking 15-20 miles a week. 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 He likes to do yoga. He is not doing extension positions with yoga. Pt sleeps on his side without pillow support between legs. Prior Treatments and Tests Lumbar x-ray 12/06/20: mod to severe L5-S1 spondylosis and diffuse facet arthropathy, multilevel degenerative endplate sclerosis and spurring, straightening of the normal lordotic curvature. Treatment Goals Patient/Caregiver Goals To decrease pain, increase strength and maintain activity level PT-OP-C Subjective Start: 12/18/20 10:43 Freq: Status: Active Protocol: Document 03/18/21 13:00 MB (Rec: 03/18/21 13:52 MB [id number]) OP-PT Subjective Patient Comments Patient Comments Pt states that he got an adjustable table that moves up and down and a 75 cm therapy ball. He is doing his new job as executive business coach. He is doing some new stuff with yoga. Pt would like to practice lifting . PT-OP-J Posture/Palpation/Skin Start: 12/18/20 10:43 Freq: Status: Active Protocol: Document 12/18/20 12:16 MB (Rec: 12/18/20 16:06 MB [id number]) Posture Evaluation Comments Posture Comments Standing with socks and without shoes: Forward head, rounded shoulders, Dowager's hump, decreased thoracic kyphosis, anterior tilt pelvis , thoracic convexity L that transitions to right convexity , right iliac crest higher than the left. PT-OP-K Range of Motion Start: 12/18/20 10:43 Freq: Status: Active Protocol: Document 12/18/20 12:16 MB (Rec: 12/18/20 16:03 MB [id number]) Hip Goniometric Range of Motion Hip ROM Limitations Comments Passive SLR: right 25 deg and left 30 deg PT-OP-M Strength Start: 12/18/20 10:43 Freq: Status: Active Protocol: Document 12/18/20 12:16 MB (Rec: 12/18/20 16:03 MB [id number]) Hip Strength Hip Manual Muscle Testing Left Flexion (L2) 4 Good Abduction 5 Normal Right Flexion (L2) 5 Normal Abduction 4 Good Knee Strength Knee Manual Muscle Testing Left Flexion (S2) 5 Normal Extension (L3) 5 Normal Right Flexion (S2) 5 Normal Extension (L3) 5 Normal Ankle/Foot Strength Ankle and Foot Manual Muscle Testing Left Dorsiflexion (L4) 5 Normal Right Dorsiflexion (L4) 5 Normal Toe Strength Toe Manual Muscle Testing Left Great Toe Extension 5 Normal Right Great Toe Extension 5 Normal PT-OP-T Assessment and Plan Start: 12/18/20 10:43 Freq: Status: Active Protocol: Document 04/08/21 08:24 MB (Rec: 04/08/21 08:30 MB [id number]) Physical Therapy Plan Discharge Physical Therapy Discharge Reasons Patient Request Discharge Comments Pt not seen in 20 days. Scheduling has been difficult with his schedule and then waiting long times to get into PT's schedule despite PT and front office staff educating him over the PT course that he has to schedule in advance d/ t other patients also scheduling. Since scheduling has been far apart, it has been difficult to stay in PT plan and there is a need for reassessment today as POC ended last week. PT discussed benefits of d/c with massage therapy in previous PT appointments given that pt did not want further PT exercises from PT (he is doing yoga and does not like PT handouts and wants things electronic) and pt con't to state that he would keep some appointments. When PT attempts to bring up conversation about d/c and having maximized what PT can do for him, pt becomes angry, gets up and leaves appointment , stating, That's it. We're done. You're rude. Over PT course, PT has tried to accommodate all of pt's requests for communication through email including his request that PT assist with making appointments. PT con't educated pt that PT cannot do this. Will d/c PT.
== END 2021-04-08 08:38 | disposition home or self-care (01) ==
LOC: PHYS 13:00
PROVIDERS: PCP Internal Medicine; Referring Provider Internal Medicine; Visit Provider Internal Medicine
DX: M47.819 Spondylosis without myelopathy or radiculopathy, site unspecified (principal)
CPT/HCPCS: 97110; 97140; 97161; 97535